=== PATIENT | female | born 1930 | race Caucasian/White ===

== ENCOUNTER 2016-09-25 11:05 | Emergency (ER) | payer MEDICARE, BC ==
[~2016-09-25] VITALS: Ht 157.5 cm; Wt 57.4 kg
[~2016-09-25 11:05] MED LIST: ALPR0.5T PO; ASPI-664 PO; ATOR40TA68 PO; ESCI20TA38 PO; FOLI-49 PO; HYDR-902 PO; LEVO112T2 PO; LEVO500T72 PO; METF850T PO; METO50TA16 PO; OMEG100011 PO; OMEP20CA16 PO; PIOG15TA4 PO; SENN-53 PO
[2016-09-25 11:08] VITALS: Ht 157.5 cm; Wt 57.4 kg
[2016-09-25 11:36] LABS: ADD SCAN DIFF NO
[2016-09-25 11:39] LABS: BASOPHILS % 0.3 % (0.0-2.0); EOSINOPHILS # 0.2 10^3/ul (0.0-0.5); EOSINOPHILS % 2.7 % (0.0-7.0); HEMATOCRIT 37.4 % (37.0-47.0); HEMOGLOBIN 11.9 g/dl (12.0-16.0); LYMPHOCYTES # 2.3 10^3/ul (0.8-2.9); LYMPHOCYTES % 30.1 % (15.0-51.0); MEAN CORPUSCULAR HEMOGLOBIN 30.3 pg (29.0-33.0); MEAN CORPUSCULAR HGB CONC 31.8 g/dl (32.0-37.0); MEAN CORPUSCULAR VOLUME 95.2 fl (82.0-101.0); MEAN PLATELET VOLUME 9.3 fl (7.4-10.4); MONOCYTE # 0.5 10^3/ul (0.3-0.9); MONOCYTES % 7.1 % (0.0-11.0); NEUTROPHIL # 4.5 10^3/ul (1.6-7.5); NEUTROPHILS % 59.7 % (39.0-77.0); PLATELET COUNT 316 10^3/UL (140-415); RED BLOOD COUNT 3.93 10^6/ul (4.20-5.40); WHITE BLOOD COUNT 7.5 10^3/ul (4.8-10.8)
[2016-09-25 11:47] LABS: ALBUMIN 4.1 g/dl (3.3-4.9); CHLORIDE 99 mmol/L (97-110); INR 0.91; PROTIME 12.3 Sec (12.2-14.2); SODIUM 140 mmol/L (135-144)
[2016-09-25 11:48] LABS: PARTIAL THROMBOPLASTIN TIME 28.1 Sec (25.0-35.0); POTASSIUM 4.9 mmol/L (3.5-5.1)
[2016-09-25 11:50] LABS: ALANINE AMINOTRANSFERASE 15 IU/L (13-69); ALBUMIN/GLOBULIN RATIO 1.07; ALKALINE PHOSPHATASE 73 IU/L (42-121); ANION GAP 18 (8-16); ASPARTATE AMINO TRANSFERASE 20 IU/L (15-46); BILIRUBIN,INDIRECT 0.1 mg/dl (0-1.1); BILIRUBIN,TOTAL 0.1 mg/dl (0.2-1.3); BLOOD UREA NITROGEN 20 mg/dl (7-20); CARBON DIOXIDE 28 mmol/L (21-31); CREATININE 0.71 mg/dl (0.44-1.00); GLUCOSE 174 mg/dl (70-220); TOTAL PROTEIN 7.9 g/dl (6.1-8.1)
[2016-09-25 11:51] LABS: CALCIUM 9.8 mg/dl (8.4-10.2)
--- NOTE | 2016-09-25 11:52 | RADRPT ---
PROCEDURE: XR Chest. CLINICAL INDICATION: Chest pain TECHNIQUE: Chest AP portable COMPARISON: 05/07/2016 FINDINGS: The mediastinal structures are unremarkable. There is calcification of the thoracic aorta (consiste nt with atherosclerosis). The heart is normal in size and configuration. The pulmonary vascularity is normal. There is mild bibasilar subsegmental atelectasis. No consolidation is identified. The pleural spaces are unremarkable. There is diffuse osteopenia. No fracture is identified. IMPRESSION: Calcification of the thoracic aorta (consistent with atherosclerosis). Mild bibasilar subsegmental atelectasis RPTAT: HGDB .Abraham De Oliveira MD, MD Date Time Electronically viewed and signed by .Abraham De Oliveira MD, on 09/25/2016 11:51 .B/
[2016-09-25 11:55] LABS: ACETAMINOPHEN < 10.0 ug/ml (10.0-30.0)
[2016-09-25 12:04] LABS: TROPONIN-I < 0.012 ng/ml (0.00-0.12)
[2016-09-25] MEDS ORDERED: GABA100C14 PO (12:47)
[2016-09-25] MEDS ORDERED: IODIXANOL LOCM 50 ML BTL ONE (13:16)
[2016-09-25] MEDS ORDERED: IODIXANOL LOCM 100 ML BTL ONE (13:16)
[2016-09-25] MEDS ORDERED: SOD CHLORIDE 0.9% 100 ML ONE (13:16)
--- NOTE | 2016-09-25 14:04 | RADRPT ---
PROCEDURE: CTA Chest CLINICAL INDICATION: Chest pain TECHNIQUE: CTA of the chest was performed following the uncomplicated IV administration of 115 cc of Visipaque 320. Coronal and sagittal images were reconstructed from the axial data set. 3-D volu metric rendered post processing was performed as well. One or more of the following dose reduction techniques were used: automated exposure control, adjustment of the mA and/or kV according to patien t size, use of iterative reconstruction technique. CTDI = 10.94 mGy. DLP = 413.35 mGy-cm. COMPARISON: Chest x-ray, 09/25/2016 FINDINGS: No filling defect is present to suggest pulmonary embolism. There is no evidence for pulmonary [place] rial hypertension. There are small to mild bilateral pleural effusions, larger on the right, with associated bibasilar atelectasis. No acute infiltrate, pulmonary edema or pneumothorax is identified. The central trach eobronchial tree is clear. No pulmonary nodule or mass is identified. The heart size is normal without pericardial effusion. Coronary arterial and aortic atherosclerotic calcifications are present. There is no thoracic aortic aneurysm or dissection. No mediastinal, h ilar, axillary or supraclavicular lymphadenopathy is identified. Visualized portions of the upper abdomen demonstrate no acute abnormality. The osseous structures a re remarkable for diffuse degenerative spondylosis of the spine. Old, healed right-sided rib fractu res are noted. There is chronic mild compression deformity of T12. No osteolytic or osteoblastic le robyn is seen. IMPRESSION: 1. No pulmonary embolism is identified. 2. There are small to mild bilateral pleural effusions, with associated bibasilar atelectasis, grea ter on the right. 3. Coronary arterial and aortic atherosclerotic calcifications are present. 4. No mass, lymphadenopathy, or focal acute infiltrate is seen. RPTAT: PP .Rob Barnes MD, Date Time Electronically viewed and signed by .Rob Barnes MD, MD on 09/25/2016 14:03 .R/
--- NOTE | 2016-09-25 14:48 | ERD ---
ER Documentation Chief Complaint Date/Time DATE: 09/25/16 TIME: 14:44 Chief Complaint SOB X 3 DAYS, SLEEPY,TIRED HPI This is an 86-year-old female who presents to the emergency room for evaluation of generalized weakness, mild shortness of breath for the past 3 days. History is obtained from patient and patient's daughter was at bedside. According to the patient she has been feeling sleepy and tired. According to the patient's daughter the patient takes proximally 6 [place] today for chronic pain. There was a concern because the patient has had multiple falls at home. No pulse today, no head injury, no loss of consciousness and previous falls. The patient was brought to the emergency room for evaluation of all of her complaints. She denies any chest pain or palpitations or shortness of breath at this time ROS All systems reviewed and are negative except as per history of present illness. Medications Home Meds Active Scripts Levothyroxine Sodium* (Synthroid*) 112 Mcg Tablet, 125 MCG PO AC BREAKFAST for 30 Days, #30 TAB Prov:YOANA HARTLEY MD 05/11/16 Reported Medications Gabapentin* (Gabapentin*) 100 Mg Capsule, 100 MG PO TID, #90 CAP 09/25/16 Sennosides* (Senna Lax*) 8.6 Mg Tablet, 2 TAB PO DAILY, TAB 05/07/16 Omeprazole* (Omeprazole*) 20 Mg Capsule.dr, 20 MG PO DAILY, #30 CAP 05/07/16 Hydrocodone/Acetaminophen ([place] 10-325 Tablet) 1 Each Tablet, 2 EACH PO TID, TAB 05/07/16 Folic Acid* (Folic Acid*) 1 Mg Tablet, 1 MG PO DAILY, TAB 05/07/16 Escitalopram Oxalate* (Escitalopram Oxalate*) 20 Mg Tablet, 20 MG PO DAILY, #30 TAB 05/07/16 Metformin Hcl* (Metformin Hcl*) 850 Mg Tablet, 850 MG PO WITH BREAKFAST, #30 TAB 05/07/16 Alprazolam* (Xanax*) 0.5 Mg Tab, 0.5 MG PO QHS, TAB 06/16/14 [place]-3 Fatty Acids/Fish Oil* (Fish Oil *) 1,000 Mg Capsule, 2000 MG PO DAILY, CAP 06/16/14 Aspirin* (Aspirin* (EC)) 81 Mg Tablet.dr, 162 MG PO DAILY, EA 06/16/14 Metoprolol Succinate* (Toprol XL*) 50 Mg Tab.er.24h, 50 MG PO DAILY, TAB 06/16/14 Atorvastatin* (Atorvastatin*) 40 Mg Tablet, 40 MG PO HS, TAB 06/16/14 Pioglitazone Hcl* (Actos*) 15 Mg Tablet, 15 MG PO DAILY, TAB 06/16/14 Discontinued Scripts Levofloxacin* (Levaquin*) 500 Mg Tablet, 500 MG PO DAILY@06 for 5 Days, #5 TAB Prov:YOANA HARTLEY MD 05/11/16 Allergies Allergies: Coded Allergies: No Known Drug Allergy (Verified Allergy, Unknown, 09/25/16) PMhx/Soc History of Surgery: Yes (PCI placement, cervical/lumbar laminectomy) Anesthesia Reaction: No Hx Neurological Disorder: No Hx Respiratory Disorders: No (C) Hx Cardiac Disorders: Yes (CAD) Hx Psychiatric Problems: No Hx Miscellaneous Medical Probl: Yes (HTN, DM, hypothyroidism, depression, CAD) Hx Alcohol Use: Yes Hx Substance Use: No Hx Tobacco Use: No Physical Exam Vitals Vital Signs Date Time Temp Pulse Resp B/P Pulse Ox O2 Delivery O2 Flow Rate FiO2 09/25/16 11:30 Nasal Cannula 2 09/25/16 11:08 98.1 116 18 134/66 92 Physical Exam INITIAL VITAL SIGNS: Reviewed by me GENERAL: The patient is well developed and appropriate for usual state of health in no apparent distress HEENT: Pupils equal, round, and reactive to light. EOMI. There is no scleral icterus. NECK: C-spine is soft and supple, there is no meningismus. There is no cervical lymphadenopathy. LUNGS: Clear to auscultation bilaterally. There are no rales, wheezes or rhonchi. HEART: Regular rate and rhythm, no murmurs, clicks, rubs or gallops. ABDOMEN: Soft, non-tender, non-distended. There are bowel sounds in all four quadrants. No rebound or guarding. EXTREMITIES: There is no peripheral cyanosis or edema. No focal swelling or erythema. NEUROLOGICAL: The patient moves all four extremities with 5/5 strength. Cranial nerves II - XII are intact. Normal gait. Alert and oriented SKIN: There is no apparent rash or petechiae. HEME/LYMPHATIC: There is no evidence of excessive bruising or lymphedema. PSYCHIATRIC: The patient does appear to be mildly anxious Result Diagram: 09/25/16 1129 09/25/16 1129 Results 24 hrs Laboratory Tests Test 09/25/16 11:29 White Blood Count 7.510^3/ul Red Blood Count 3.9310^6/ul Hemoglobin 11.9g/dl Hematocrit 37.4% Mean Corpuscular Volume 95.2fl Mean Corpuscular Hemoglobin 30.3pg Mean Corpuscular Hemoglobin Concent 31.8g/dl Red Cell Distribution Width 13.0% Platelet Count 72616^3/UL Mean Platelet Volume 9.3fl Neutrophils % 59.7% Lymphocytes % 30.1% Monocytes % 7.1% Eosinophils % 2.7% Basophils % 0.3% Nucleated Red Blood Cells % 0.0/100WBC Neutrophils # 4.510^3/ul Lymphocytes # 2.310^3/ul Monocytes # 0.510^3/ul Eosinophils # 0.210^3/ul Basophils # 0.010^3/ul Nucleated Red Blood Cells # 0.010^3/ul Prothrombin Time 12.3Sec Prothrombin Time Ratio 1.0 INR International Normalized Ratio 0.91 Activated Partial Thromboplast Time 28.1Sec Sodium Level 140mmol/L Potassium Level 4.9mmol/L Chloride Level 99mmol/L Carbon Dioxide Level 28mmol/L Anion Gap 18 Blood Urea Nitrogen 20mg/dl Creatinine 0.71mg/dl Glucose Level 174mg/dl Calcium Level 9.8mg/dl Total Bilirubin 0.1mg/dl Direct Bilirubin 0.00mg/dl Indirect Bilirubin 0.1mg/dl Aspartate Amino Transf (AST/SGOT) 20IU/L Alanine Aminotransferase (ALT/SGPT) 15IU/L Alkaline Phosphatase 73IU/L Troponin I < 0.012ng/ml Total Protein 7.9g/dl Albumin 4.1g/dl Globulin 3.80g/dl Albumin/Globulin Ratio 1.07 Acetaminophen Level < 10.0ug/ml Current Medications Medications (Trade) Dose Ordered Sig/Alice Route PRN Reason Start Time Stop Time Status Last Admin Dose Admin IV Flush 10 ml 10 ml STK-MED ONCE .ROUTE 09/25/16 13:16 09/25/16 13:17 DC 09/25/16 13:43 Sodium Chloride (NS) 100 ml @ ud STK-MED ONCE .ROUTE 09/25/16 13:16 4 13:17 DC 09/25/16 13:43 Iodixanol (Visipaque Locm) 100 ml STK-MED ONCE .ROUTE 09/25/16 13:16 09/25/16 13:17 DC 09/25/16 13:44 Iodixanol (Visipaque Locm) 50 ml STK-MED ONCE .ROUTE 09/25/16 13:16 09/25/16 13:17 DC 09/25/16 13:45 Procedures/MDM EKG: Rate/Rhythm: [Normal Sinus Rhythm] QRS, ST, T-waves: Nonspecific T-wave abnormality Impression: [No evidence of ischemia or arrhythmia] Chest X-ray 1V Interpreted by me: Soft Tissue: No acute abnormalities Bones: No acute abnormalities Mediastinum/Cardiac Silhouette/Lungs: [No acute abnormalities] CT angiography chest: 1. No pulmonary embolism is identified. 2. There are small to mild bilateral pleural effusions, with associated bibasilar atelectasis, greater on the right. 3. Coronary arterial and aortic atherosclerotic calcifications are present. 4. No mass, lymphadenopathy, or focal acute infiltrate is seen. This 86-year-old female presents to the emergency room for evaluation of multiple complaints including feeling tired, and cold when she wakes up in the morning. This patient's had multiple falls in the past. When she was in triage she was mildly tachycardic however when I evaluated her she was not tachycardic, no respiratory distress, not hypoxic. The patient has not been ambulating as much secondary to multiple falls at home. Given the patient's decreased activity and tachycardia in triage I did obtain a CT angiography of the chest to rule out pulmonary embolism. This patient has a negative for scan for pulmonary embolism. Troponin is normal, EKG is nonischemic, chest x-ray is clear. She is hemodynamically stable in the emergency room and in no acute distress. I discussed the patient's lab findings in the imaging findings with the patient and her daughter. I have let them know that she has no life- threatening emergencies at this time, and that she will likely need a physical therapy for outpatient evaluation. Both verbalized understanding and are okay with her disposition and plan of care at this time. I advised to return immediately to the ER if any of her symptoms worsen and they both verbalized understanding. Patient's daughter does state that she has the capacity to take care of the patient at home and will keep an eye on her and only allow her to ambulate with help. Departure Diagnosis: Primary Impression: Multiple complaints Additional Impressions: Generalized weakness Multiple falls Condition: Stable PAULA EDWARDS DO Sep 25, 2016 14:48
[2016-09-25 15:00] VITALS: BP 105/55; PULSE 78; RESP 18
== END 2016-09-25 15:00 | disposition home or self-care (01) ==
LOC: E/R 11:05
DX: R06.02 Shortness of breath (principal); R53.1 Weakness; I25.10 Atherosclerotic heart disease of native coronary artery without angina pectoris; I10 Essential (primary) hypertension; E11.9 Type 2 diabetes mellitus without complications; E03.9 Hypothyroidism, unspecified; W19.XXXA Unspecified fall, initial encounter; Z79.84 Long term (current) use of oral hypoglycemic drugs; Z79.82 Long term (current) use of aspirin
CPT/HCPCS: 36415; 71010; 71275; 80053; 80306; 84484; 85025; 85610; 85730; 93005; 99285; Q9967

== ENCOUNTER 2017-02-28 13:42 | Inpatient (IN) | payer MEDICARE, BC ==
[~2017-02-28] VITALS: Wt 72.7 kg
[~2017-02-28 13:42] MED LIST changes: +GABA100C14 PO; -LEVO500T72 PO; +METO-319 PO; -METO50TA16 PO
--- NOTE | 2017-02-28 13:56 | ERA ---
ER Documentation Chief Complaint Date/Time DATE: 02/28/17 TIME: 13:54 Chief Complaint sob and chest pressure, recently hospitalized for chf HPI The patient is a 86-year-old female, presenting with acute chest pain acute shortness of breath began about 4 AM today. The chest pain was described as pressure substernal, she has similar symptoms previously. Her chest pain is nonradiating, the shortness of breath is better if she sits up she was discharged from [facility] recently for CHF, MT and UTI. He denies abdominal pain, vomiting, dysuria, diarrhea. She does not smoke nor drink. She is taking Amoxil for UTI Past medical history: History of CHF, CAD hypertension, diabetes mellitus, hypothyroidism, depression, dyslipidemia, urinary incontinence, hard of hearing Past Surgical history: Cervical and lumbar laminectomy, stent PCI ROS All systems reviewed and are negative except as per history of present illness. Medications Home Meds Reported Medications Levothyroxine Sodium* (Levothyroxine Sodium*) 100 Mcg Tablet, 100 MCG PO BEFORE BREAKFAST, #30 TAB 02/28/17 Gabapentin* (Gabapentin*) 100 Mg Capsule, 100 MG PO TID, #90 CAP 09/25/16 Sennosides* (Senna Lax*) 8.6 Mg Tablet, 2 TAB PO DAILY, TAB 05/07/16 Omeprazole* (Omeprazole*) 20 Mg Capsule.dr, 20 MG PO DAILY, #30 CAP 05/07/16 Hydrocodone/Acetaminophen ([place] 10-325 Tablet) 1 Each Tablet, 2 EACH PO TID, TAB 05/07/16 Folic Acid* (Folic Acid*) 1 Mg Tablet, 1 MG PO DAILY, TAB 05/07/16 Metformin Hcl* (Metformin Hcl*) 850 Mg Tablet, 850 MG PO WITH BREAKFAST, #30 TAB 05/07/16 Alprazolam* (Xanax*) 0.5 Mg Tab, 0.5 MG PO QHS, TAB 06/16/14 Carbon-3 Fatty Acids/Fish Oil* (Fish Oil *) 1,000 Mg Capsule, 2000 MG PO DAILY, CAP 06/16/14 Aspirin* (Aspirin* (EC)) 81 Mg Tablet.dr, 162 MG PO DAILY, EA 06/16/14 Metoprolol Succinate* (Toprol XL*) 50 Mg Tab.er.24h, 50 MG PO DAILY, TAB 06/16/14 Atorvastatin* (Atorvastatin*) 40 Mg Tablet, 40 MG PO HS, TAB 06/16/14 Pioglitazone Hcl* (Actos*) 15 Mg Tablet, 15 MG PO DAILY, TAB 06/16/14 Discontinued Reported Medications Escitalopram Oxalate* (Escitalopram Oxalate*) 20 Mg Tablet, 20 MG PO DAILY, #30 TAB 05/07/16 Discontinued Scripts Levothyroxine Sodium* (Synthroid*) 112 Mcg Tablet, 125 MCG PO AC BREAKFAST for 30 Days, #30 TAB Prov:YOANA HARTLEY MD 05/11/16 Allergies Allergies: Coded Allergies: No Known Drug Allergy (Verified Allergy, Unknown, 09/25/16) PMhx/Soc History of Surgery: Yes (PCI placement, cervical/lumbar laminectomy) Anesthesia Reaction: No Hx Neurological Disorder: No Hx Respiratory Disorders: No (C) Hx Cardiac Disorders: Yes (CAD) Hx Psychiatric Problems: No Hx Miscellaneous Medical Probl: Yes (HTN, DM, hypothyroidism, depression, CAD) Hx Alcohol Use: Yes Hx Substance Use: No Hx Tobacco Use: No Physical Exam Vitals Vital Signs Date Time Temp Pulse Resp B/P Pulse Ox O2 Delivery O2 Flow Rate FiO2 02/28/17 17:03 68 18 118/51 98 Nasal Cannula 2.0 02/28/17 15:26 64 17 136/60 100 Room Air 02/28/17 15:07 65 17 134/72 94 Room Air 02/28/17 13:43 98.2 109 20 126/63 95 Physical Exam Const: No acute distress. Head: Atraumatic. Eyes: Normal Conjunctiva. ENT: Normal External Ears, Nose and Mouth. Neck: Full range of motion. No meningismus. Resp: Bibasilar crackle Cardio: Regular rate and rhythm. Abd: Soft, non distended, normal bowel sounds, non tender. Skin: No petechiae or rashes. Back: No midline or flank tenderness. Ext: No cyanosis, or edema. Neur: Awake and alert. No focal deficit Psych: Normal Mood and Affect. Result Diagram: 02/28/17 1430 02/28/17 1430 Results 24 hrs Laboratory Tests Test 02/28/17 14:30 White Blood Count 6.210^3/ul Red Blood Count 3.9010^6/ul Hemoglobin 11.0g/dl Hematocrit 34.8% Mean Corpuscular Volume 89.2fl Mean Corpuscular Hemoglobin 28.2pg Mean Corpuscular Hemoglobin Concent 31.6g/dl Red Cell Distribution Width 12.7% Platelet Count 65420^3/UL Mean Platelet Volume 8.6fl Neutrophils % 58.3% Lymphocytes % 29.9% Monocytes % 7.7% Eosinophils % 3.4% Basophils % 0.5% Nucleated Red Blood Cells % 0.0/100WBC Neutrophils # 3.610^3/ul Lymphocytes # 1.910^3/ul Monocytes # 0.510^3/ul Eosinophils # 0.210^3/ul Basophils # 0.010^3/ul Nucleated Red Blood Cells # 0.010^3/ul Prothrombin Time 12.7Sec Prothrombin Time Ratio 1.0 INR International Normalized Ratio 0.95 Activated Partial Thromboplast Time 32.8Sec Sodium Level 131mmol/L Potassium Level 4.6mmol/L Chloride Level 94mmol/L Carbon Dioxide Level 30mmol/L Anion Gap 12 Blood Urea Nitrogen 14mg/dl Creatinine 0.68mg/dl Glucose Level 165mg/dl Calcium Level 9.2mg/dl Total Bilirubin 0.2mg/dl Direct Bilirubin 0.00mg/dl Indirect Bilirubin 0.2mg/dl Aspartate Amino Transf (AST/SGOT) 23IU/L Alanine Aminotransferase (ALT/SGPT) 21IU/L Alkaline Phosphatase 92IU/L Troponin I < 0.012ng/ml B-Type Natriuretic Peptide 1000PG/ML Total Protein 8.0g/dl Albumin 3.8g/dl Globulin 4.20g/dl Albumin/Globulin Ratio 0.90 Current Medications Medications (Trade) Dose Ordered Sig/Alice Route PRN Reason Start Time Stop Time Status Last Admin Dose Admin Aspirin (Aspirin) 162 mg ONCE ONCE PO 02/28/17 16:30 02/28/17 16:31 DC 02/28/17 16:48 Furosemide (Lasix) 20 mg ONCE ONCE IV 02/28/17 16:30 02/28/17 16:31 DC 02/28/17 16:48 IV Flush (NS 3 ml) 3 ml PER PROTOCOL IV 02/28/17 19:00 Nitroglycerin (Nitroglycerin (Sl Tab) 0.4 Mg) 1 tab Q5M PRN SL CHEST PAIN 02/28/17 19:00 Acetaminophen (Tylenol Tab) 650 mg Q6H PRN PO PAIN LEVEL 1-3 OR FEVER 02/28/17 19:00 Enoxaparin Sodium (Lovenox) 40 mg DAILY SC 03/01/17 09:00 Aspirin (Halfprin) 162 mg DAILY PO 03/01/17 09:00 UNV Atorvastatin Calcium (Lipitor) 40 mg HS PO 02/28/17 21:00 UNV Folic Acid (Folic Acid) 1 mg DAILY PO 03/01/17 09:00 UNV Gabapentin (Neurontin) 100 mg TID PO 02/28/17 21:00 UNV Levothyroxine Sodium (Synthroid) 100 mcg BEFORE BREAKFAST PO 03/01/17 07:00 UNV Metformin HCl (Glucophage) 850 mg WITH BREAKFAST PO 03/01/17 08:00 UNV Metoprolol Succinate (Toprol Xl) 50 mg DAILY PO 03/01/17 09:00 UNV Fish Oil (Fish Oil) 2,000 mg DAILY PO 03/01/17 09:00 UNV Pioglitazone HCl (Actos) 15 mg DAILY PO 03/01/17 09:00 UNV Senna (Senokot) 2 tab DAILY PO 03/01/17 09:00 UNV Miscellaneous Information 20 mg DAILY PO 03/01/17 09:00 UNV Acetaminophen/ Hydrocodone Bitart ([place] (10/325)) 1 tab Q4 PRN PO PAIN LEVEL 7-10 02/28/17 19:00 UNV Alprazolam (Xanax) 0.5 mg Q6 PRN PO ANXIETY 02/28/17 19:00 UNV Levothyroxine Sodium (Synthroid) 88 mcg ONCE ONCE PO 02/28/17 19:00 02/28/17 19:01 UNV Miscellaneous Information (* Miscellaneous Pharmacy Order) Discontinue current oral sulfonylur... ONCE ONCE XX 02/28/17 19:00 02/28/17 19:01 UNV Diagnostic Test (Pha) (Accu-Chek) 1 ea 02 XX 03/01/17 02:00 UNV Miscellaneous Information (* Miscellaneous Pharmacy Order) HYPOGLYCEMIA PROTOCOL w... ONCE ONCE XX 02/28/17 19:00 02/28/17 19:01 UNV Insulin Aspart (Novolog Insulin Pen) NOVOLOG *MILD* ALGORITHM WITH MEALS BEDTIME SC 02/28/17 21:00 UNV Miscellaneous Information (* Miscellaneous Pharmacy Order) Discontinue all previ... ONCE ONCE XX 02/28/17 19:00 02/28/17 19:01 UNV Procedures/[place] [address] Radiology Main Line: [phone] DIAGNOSTIC IMAGING REPORT Patient: DAMARI FISHER : 1930 Age: 86 Sex: F MR #: [id number] DOS: 02/28/17 1402 Ordering MD: ARMIN AMAYA MD Location: E/R Room/Bed: PROCEDURE: XR Chest 1 View. CLINICAL INDICATION: Shortness of breath. TECHNIQUE: AP view of the chest was obtained. COMPARISON: September 25, 2016 FINDINGS: The heart size is within normal limits. Calcified atherosclerosis is noted in the aorta. Elevated right hemidiaphragm is identified. Diffuse mild interstitial prominence in both lungs appears chronic. Scattered atelectasis is noted in both lungs. No consolidations are identified. No pneumothorax is seen. Osseous structures are intact. IMPRESSION: Calcified atherosclerosis in the aorta. Chronic mild interstitial prominence in both lungs. Scattered atelectasis in both lungs. Chronically elevated right hemidiaphragm. RPTAT: AA .Uriel Chakraborty MD, Date Time Electronically viewed and signed by .Uriel Chakraborty MD, MD on 02/28/2017 15:04 .P/ CC: [facility] AMAYA MD EKG: Read by emergency physician Rate/Rhythm: Normal Sinus Rhythm 83 beats/min QRS, ST, T-waves: No ST elevation, no T inversion, RBBB, inferior Qs Impression: Abnormal EKG MEDICAL MAKING DECISION: The patient is a 86-year-old female, presenting with acute chest pain and acute CHF. She was treated with aspirin 160 mg p.o. and Lasix 20 mg IV with good response. The differential diagnoses for acute chest pain considered include but are not limited to acute coronary syndrome, acute myocardial infarction, pericarditis, pulmonary embolism, aortic dissection, pneumonia, pleural effusion, pneumothorax , GERD, chest wall pain. The differential diagnoses for acute dyspnea considered include but are not limited to asthma, COPD, pneumonia, pulmonary embolus, pleural effusion, congestive heart failure. Departure Diagnosis: Primary Impression: CHF (congestive heart failure) Additional Impressions: Chest pain Anemia Condition: Stable Comments I discussed the findings with the patient. I discussed the patient with her physician Dr. Correia at 4:15 pm who was made aware of the lab, the treatment, the patient condition. The patient is admitted to [facility] Rm MD Feb 28, 2017 13:56
[2017-02-28 14:49] LABS: BASOPHILS % 0.5 % (0.0-2.0); EOSINOPHILS # 0.2 10^3/ul (0.0-0.5); EOSINOPHILS % 3.4 % (0.0-7.0); HEMATOCRIT 34.8 % (37.0-47.0); LYMPHOCYTES # 1.9 10^3/ul (0.8-2.9); LYMPHOCYTES % 29.9 % (15.0-51.0); MEAN CORPUSCULAR HEMOGLOBIN 28.2 pg (29.0-33.0); MEAN CORPUSCULAR HGB CONC 31.6 g/dl (32.0-37.0); MEAN CORPUSCULAR VOLUME 89.2 fl (82.0-101.0); MEAN PLATELET VOLUME 8.6 fl (7.4-10.4); MONOCYTE # 0.5 10^3/ul (0.3-0.9); MONOCYTES % 7.7 % (0.0-11.0); NEUTROPHIL # 3.6 10^3/ul (1.6-7.5); NEUTROPHILS % 58.3 % (39.0-77.0); PLATELET COUNT 362 10^3/UL (140-415); RED CELL DISTRIBUTION WIDTH 12.7 % (11.5-14.5); WHITE BLOOD COUNT 6.2 10^3/ul (4.8-10.8)
[2017-02-28] MEDS ORDERED: LEVO100T87 PO (14:49)
[2017-02-28 15:04] LABS: ALANINE AMINOTRANSFERASE 21 IU/L (13-69); ALBUMIN 3.8 g/dl (3.3-4.9); ALKALINE PHOSPHATASE 92 IU/L (42-121); ANION GAP 12 (8-16); ASPARTATE AMINO TRANSFERASE 23 IU/L (15-46); BILIRUBIN,INDIRECT 0.2 mg/dl (0-1.1); BILIRUBIN,TOTAL 0.2 mg/dl (0.2-1.3); BLOOD UREA NITROGEN 14 mg/dl (7-20); CALCIUM 9.2 mg/dl (8.4-10.2); CARBON DIOXIDE 30 mmol/L (21-31); CHLORIDE 94 mmol/L (97-110); CREATININE 0.68 mg/dl (0.44-1.00); GLUCOSE 165 mg/dl (70-220); POTASSIUM 4.6 mmol/L (3.5-5.1); SODIUM 131 mmol/L (135-144)
--- NOTE | 2017-02-28 15:04 | RADRPT ---
PROCEDURE: XR Chest 1 View. CLINICAL INDICATION: Shortness of breath. TECHNIQUE: AP view of the chest was obtained. COMPARISON: September 25, 2016 FINDINGS: The heart size is within normal limits. Calcified atherosclerosis is noted in the aorta. Elevated r ight hemidiaphragm is identified. Diffuse mild interstitial prominence in both lungs appears chronic . Scattered atelectasis is noted in both lungs. No consolidations are identified. No pneumothorax i s seen. Osseous structures are intact. IMPRESSION: Calcified atherosclerosis in the aorta. Chronic mild interstitial prominence in both lungs. Scattered atelectasis in both lungs. Chronically elevated right hemidiaphragm. RPTAT: AA .Uriel Chakraborty MD, Date Time Electronically viewed and signed by .Uriel Chakraborty MD, on 02/28/2017 15:04 .P/
[2017-02-28 15:09] LABS: INR 0.95; PROTIME 12.7 Sec (12.2-14.2)
[2017-02-28 15:10] LABS: PARTIAL THROMBOPLASTIN TIME 32.8 Sec (25.0-35.0)
[2017-02-28 15:15] LABS: B-TYPE NATRIURETIC PEPTIDE 1000 PG/ML (0-450)
[2017-02-28 15:16] LABS: TROPONIN-I < 0.012 ng/ml (0.00-0.12)
[2017-02-28] MEDS ORDERED: FUROSEMIDE 20 MG INJ IV ONE (16:30)
[2017-02-28] MEDS ORDERED: ASPIRIN 81 MG TAB PO ONE (16:30)
--- NOTE | 2017-02-28 16:55 | CONS ---
Date/Time of Note Date/Time of Note DATE: 02/28/17 TIME: 16:52 Assessment/Plan Assessment/Plan Chief Complaint/Hosp Course Impression: # chest pain- pt with h/o of CAD, family states ? recent NH at [facility] though no records available. trop neg x 1. ekg without acute changes. - serial EKG, trop - cont asa/statin - obtain 2d echo in am - f/u old records - cont bb/bp control - prn nitrate # acute on chronic diastolic hf- pt with recent admission for this as well, ? if drop in ef there. will need to obtain records. repeat echo given sx. bnp elevated, mild chf on cxr on my review - lasix iv - watch i/o, low na diet - cont bb - consider acei if cr stable - bp control # recent UTI, per primary Problems: Consultation Date/Type/Reason Admit Date/Time Social History Smoking Status: Never smoker Exam/Review of Systems Vital Signs Vitals Vital Signs Date Time Temp Pulse Resp B/P Pulse Ox O2 Delivery O2 Flow Rate FiO2 02/28/17 15:26 64 17 136/60 100 Room Air 02/28/17 13:43 98.2 Results Result Diagram: 02/28/17 1430 02/28/17 1430 Results 24 hrs Laboratory Tests Test 02/28/17 14:30 White Blood Count 6.2 Red Blood Count 3.90 L Hemoglobin 11.0 L Hematocrit 34.8 L Mean Corpuscular Volume 89.2 Mean Corpuscular Hemoglobin 28.2 L Mean Corpuscular Hemoglobin Concent 31.6 L Red Cell Distribution Width 12.7 Platelet Count 362 Mean Platelet Volume 8.6 Neutrophils % 58.3 Lymphocytes % 29.9 Monocytes % 7.7 Eosinophils % 3.4 Basophils % 0.5 Nucleated Red Blood Cells % 0.0 Neutrophils # 3.6 Lymphocytes # 1.9 Monocytes # 0.5 Eosinophils # 0.2 Basophils # 0.0 Nucleated Red Blood Cells # 0.0 Prothrombin Time 12.7 Prothrombin Time Ratio 1.0 INR International Normalized Ratio 0.95 Activated Partial Thromboplast Time 32.8 Sodium Level 131 L Potassium Level 4.6 Chloride Level 94 L Carbon Dioxide Level 30 Anion Gap 12 Blood Urea Nitrogen 14 Creatinine 0.68 Glucose Level 165 Calcium Level 9.2 Total Bilirubin 0.2 Direct Bilirubin 0.00 Indirect Bilirubin 0.2 Aspartate Amino Transf (AST/SGOT) 23 Alanine Aminotransferase (ALT/SGPT) 21 Alkaline Phosphatase 92 Troponin I < 0.012 B-Type Natriuretic Peptide 1000 H Total Protein 8.0 Albumin 3.8 Globulin 4.20 H Albumin/Globulin Ratio 0.90 AYO LESTER Feb 28, 2017 16:54
[2017-02-28] MEDS ORDERED: LEVOTHYROXINE 88 MCG TAB PO ONE (19:00)
[2017-02-28] MEDS ORDERED: NACL 0.9% 3 ML SYG IV SCH (19:00)
[2017-02-28] MEDS ORDERED: NITROGLYCERIN (SL) 0.4 MG TAB SL PRN (19:00)
[2017-02-28] MEDS ORDERED: ACETAMINOPHEN 325 MG TAB PO PRN (19:00)
[2017-02-28 20:28] VITALS: PULSE 69
[2017-02-28 20:52] VITALS: BP 176/80; RESP 17
[2017-02-28] MEDS ORDERED: GLUCOSE GEL 15 GRAM TUBE PO PRN ×2 (21:00)
[2017-02-28] MEDS ORDERED: DEXTROSE 50% 50 ML SYRINGE IV PRN ×2 (21:00)
[2017-02-28] MEDS ORDERED: GLUCOSE GEL 15 GRAM TUBE BUCCAL PRN (21:00)
[2017-02-28] MEDS: INSULIN ASPART [NOVOLOG] 3 ML PEN SC SCH (21:00)
[2017-02-28] MEDS ORDERED: GLUCAGON 1 MG INJ IM PRN (21:00)
[2017-02-28] MEDS: ALPRAZOLAM 0.25 MG TAB PO PRN (21:35)
[2017-02-28] MEDS: ATORVASTATIN 40 MG TAB PO SCH (21:35)
[2017-02-28] MEDS: GABAPENTIN 100 MG CAP PO SCH (21:36)
--- NOTE | 2017-02-28 22:45 | HP ---
DATE OF ADMISSION: 02/28/2017 CHIEF COMPLAINT: Shortness of breath with chest pressure. HISTORY OF PRESENT ILLNESS: This 86-year-old female was in her usual state of health until this morning when she developed shortness of breath and substernal chest pressure. The patient was recently hospitalized at [facility]. During that admission, she was diagnosed with a urinary tract infection, congestive heart failure, acute myocardial infarction, type 2 NSTEMI. The patient was discharged and I actually saw her 2 days ago in my office. At that time, she did have some dyspnea on exertion; however, she is very sedentary and it was difficult to tell whether this was something new or old. The patient was given diuretics while at [facility], but was not sent home on diuretics. The patient on further questioning now says that she has had some orthopnea. She did have more dyspnea on exertion, and then this morning, the shortness of breath increased in severity. She has also had some intermittent chest pressure. The patient has a history of coronary artery disease and did undergo an angioplasty with stent placement in 2003. She is under the care of Dr. Sami Bergman, a local director of hotel. The patient is mostly sedentary because of severe disabling spinal disease and diffuse arthritis. She denies any fever or chills. PAST MEDICAL HISTORY: Significant for type 2 diabetes mellitus, osteoarthritis many years disease, multiple fractures, urinary tract infections, hypothyroidism, multiple falls, deafness, congestive heart failure, atherosclerotic heart disease, status post acute [place], age related osteoporosis, chronic pain syndrome, hypothyroidism, hyperlipidemia, anemia of chronic disease. SURGICAL HISTORY: Lumbar spine surgery for spinal stenosis. Angioplasty with stent placement. FAMILY HISTORY: Her father is . He was diagnosed with heart disease and stroke. Her mother of unknown causes. SOCIAL HISTORY: The patient does not smoke nor drink alcohol. CURRENT MEDICATIONS: Include the following, Synthroid 112 mcg a day, gabapentin 100 mg 3 times a day, senna laxative, omeprazole 20 mg a day, hydrocodone, acetaminophen 10/325, 2 to 3 times a day as needed for pain, folic acid 1 mg a day, escitalopram, metformin 850 mg once a day, Xanax 0.5 mg at bedtime for sleep, [place] 3 fish oil, aspirin 162 mg a day, metoprolol succinate 50 mg a day, Atorvastatin 40 mg a day, pioglitazone 15 mg a day. ALLERGIES: NO KNOWN DRUG ALLERGIES. PHYSICAL EXAMINATION: GENERAL: At this time reveals an elderly female, in no apparent distress. VITAL SIGNS: Temperature 98.2, pulse 68, respirations 18, blood pressure 118/51, O2 sat of 98 percent on 2 L nasal cannula. HEENT: Head normocephalic. Eyes, extraocular muscles intact. Nose and mouth are normal. NECK: Supple. No neck vein distention. LUNGS: Diminished breath sounds bilaterally with a few bibasilar rales. HEART: Regular rhythm. No murmurs, gallops, or rubs. ABDOMEN: Soft, nontender. No masses or megaly. EXTREMITIES: No peripheral edema. NEUROLOGIC: She is weak diffusely without any obvious focal neurologic deficits. Cranial nerves are intact 2 through 12. IMPRESSION: 1. This patient presents now with signs and symptoms consistent with congestive heart failure. She did have an episode of congestive heart failure while at [facility]. They diagnosed it as diastolic congestive heart failure. She also was told she had an acute myocardial infarction. Her troponin level now is normal. 2. Type 2 diabetes mellitus. 3. Debility due to diffuse osteoarthritis and spinal stenosis. 4. Osteoporosis. 5. Chronic pain syndrome with dependence on opioid analgesics. 6. History of recurrent urinary tract infections. PLAN: 1. Admit to telemetry. 2. Cardiology consultation. 3. Patient has received 1 dose of Lasix in the ER. Will continue with IV Lasix starting tomorrow morning. We will check another troponin. 4. Echocardiogram ordered by director of hotel. Dictated By: Lennox Kruse MD /elliot/ralfc /Document#: [id number]
[2017-02-28] MEDS: HYDROCODONE/APAP (10/325) TAB PO PRN (23:27)
[2017-03-01] VITALS (13 sets, daily range): BP systolic 94–119; BP diastolic 48–60; PULSE 66–76; RESP 17–20
[2017-03-01] MEDS: ACCU-CHEK XX SCH (02:00)
[2017-03-01] MEDS: ALPRAZOLAM 0.25 MG TAB PO PRN ×2 (04:18→21:15)
[2017-03-01] MEDS: PANTOPRAZOLE (EC) 40 MG TAB PO SCH (06:04)
[2017-03-01] MEDS: LEVOTHYROXINE 100 MCG TAB PO SCH (06:04)
[2017-03-01 07:18] LABS: BASOPHILS % 0.5 % (0.0-2.0); EOSINOPHILS # 0.5 10^3/ul (0.0-0.5); HEMOGLOBIN 9.3 g/dl (12.0-16.0); MEAN CORPUSCULAR HEMOGLOBIN 27.8 pg (29.0-33.0); MEAN CORPUSCULAR VOLUME 89.6 fl (82.0-101.0); MONOCYTE # 0.6 10^3/ul (0.3-0.9); NEUTROPHIL # 2.6 10^3/ul (1.6-7.5); NEUTROPHILS % 45.3 % (39.0-77.0); PLATELET COUNT 323 10^3/UL (140-415); RED BLOOD COUNT 3.35 10^6/ul (4.20-5.40); WHITE BLOOD COUNT 5.6 10^3/ul (4.8-10.8)
[2017-03-01] MEDS: HYDROCODONE/APAP (10/325) TAB PO PRN ×3 (07:18→23:44)
[2017-03-01] MEDS: metFORMIN 850 MG TAB PO SCH (07:19)
[2017-03-01] MEDS: INSULIN ASPART [NOVOLOG] 3 ML PEN SC SCH ×4 (07:19→21:00)
[2017-03-01 07:44] LABS: ALBUMIN 2.9 g/dl (3.3-4.9); ALBUMIN/GLOBULIN RATIO 0.87; BILIRUBIN,INDIRECT 0.2 mg/dl (0-1.1); BILIRUBIN,TOTAL 0.2 mg/dl (0.2-1.3); CALCIUM 9.2 mg/dl (8.4-10.2); CREATININE 0.79 mg/dl (0.44-1.00); POTASSIUM 4.5 mmol/L (3.5-5.1); TOTAL PROTEIN 6.2 g/dl (6.1-8.1)
[2017-03-01] MEDS: FISH OIL 1,000 MG CAP PO SCH (08:27)
[2017-03-01] MEDS: GABAPENTIN 100 MG CAP PO SCH ×3 (08:27→21:14)
[2017-03-01] MEDS: FUROSEMIDE 40 MG INJ IV SCH (08:27)
[2017-03-01] MEDS: FOLIC ACID 1 MG TAB PO SCH (08:27)
[2017-03-01] MEDS: ASPIRIN (EC) 81 MG TAB PO SCH (08:28)
[2017-03-01] MEDS: SENNA TAB PO SCH (08:28)
[2017-03-01] MEDS: METOPROLOL (XL) 50 MG TAB PO SCH (08:29)
[2017-03-01 08:32] LABS: MAGNESIUM 1.7 mg/dl (1.7-2.5); PHOSPHORUS 5.5 mg/dl (2.5-4.9)
[2017-03-01] MEDS: ENOXAPARIN 40 MG/0.4 ML SYG SC SCH (08:42)
[2017-03-01] MEDS ORDERED: NON-FORMULARY/PATIENT OWN MED (Omeprazole* 20 MG) PO SCH (09:00)
[2017-03-01] MEDS ORDERED: PIOGLITAZONE 15 MG TAB PO SCH (09:00)
--- NOTE | 2017-03-01 09:54 | PN ---
Date/Time of Note Date/Time of Note DATE: 03/01/17 TIME: 09:45 Assessment/Plan VTE Prophylaxis VTE Prophylaxis Intervention: LMWH Lines/Catheters IV Catheter Type (from Nrs): [place] Urinary Cath still in place: No Assessment/Plan Chief Complaint/Hosp Course 1. CHF , she is getting IV Lasix daily . 2. DM , controlled 3. Debility , due to diffuse arthritis and back pain . 4. Chronic pain syndrome , with opiod dependence 5. hyponatremia , will restrict fluids . Problems: Subjective 24 Hr Interval Summary Free Text/Dictation She has no new complaints . She does want her [place] 10/325 to be given 2 tabs po Q 8 hours for pain . she is not having SOB . Constitutional: improved, no complaints Cardiovascular: no complaints Gastrointestinal: no complaints Genitourinary: no complaints Neurologic: no complaints Exam/Review of Systems Vital Signs Vitals Vital Signs Date Time Temp Pulse Resp B/P Pulse Ox O2 Delivery O2 Flow Rate FiO2 03/01/17 08:28 75 03/01/17 07:47 98.0 17 113/57 97 02/28/17 22:43 Nasal Cannula 2.0 Intake and Output 02/28/17 02/28/17 03/01/17 15:00 23:00 07:00 Intake Total 600 ml Balance 600 ml Exam Constitutional: alert, frail, oriented Respiratory: crackles/rales, diminished breath sounds Cardiovascular: regular rate and rhythm Gastrointestinal: soft Musculoskeletal: nl extremities to inspection Results Result Diagram: 03/01/17 0651 03/01/17 0651 Results 24 hrs Laboratory Tests Test 02/28/17 14:30 02/28/17 21:34 02/28/17 23:18 03/01/17 02:00 White Blood Count 6.2 Red Blood Count 3.90 L Hemoglobin 11.0 L Hematocrit 34.8 L Mean Corpuscular Volume 89.2 Mean Corpuscular Hemoglobin 28.2 L Mean Corpuscular Hemoglobin Concent 31.6 L Red Cell Distribution Width 12.7 Platelet Count 362 Mean Platelet Volume 8.6 Neutrophils % 58.3 Lymphocytes % 29.9 Monocytes % 7.7 Eosinophils % 3.4 Basophils % 0.5 Nucleated Red Blood Cells % 0.0 Neutrophils # 3.6 Lymphocytes # 1.9 Monocytes # 0.5 Eosinophils # 0.2 Basophils # 0.0 Nucleated Red Blood Cells # 0.0 Prothrombin Time 12.7 Prothrombin Time Ratio 1.0 INR International Normalized Ratio 0.95 Activated Partial Thromboplast Time 32.8 Sodium Level 131 L Potassium Level 4.6 Chloride Level 94 L Carbon Dioxide Level 30 Anion Gap 12 Blood Urea Nitrogen 14 Creatinine 0.68 Glucose Level 165 Calcium Level 9.2 Total Bilirubin 0.2 Direct Bilirubin 0.00 Indirect Bilirubin 0.2 Aspartate Amino Transf (AST/SGOT) 23 Alanine Aminotransferase (ALT/SGPT) 21 Alkaline Phosphatase 92 Troponin I < 0.012 B-Type Natriuretic Peptide 1000 H Total Protein 8.0 Albumin 3.8 Globulin 4.20 H Albumin/Globulin Ratio 0.90 Bedside Glucose 183 143 140 Test 03/01/17 06:51 03/01/17 07:17 White Blood Count 5.6 Red Blood Count 3.35 L Hemoglobin 9.3 L Hematocrit 30.0 L Mean Corpuscular Volume 89.6 Mean Corpuscular Hemoglobin 27.8 L Mean Corpuscular Hemoglobin Concent 31.0 L Red Cell Distribution Width 13.0 Platelet Count 323 Mean Platelet Volume 9.0 Neutrophils % 45.3 Lymphocytes % 35.0 Monocytes % 11.0 Eosinophils % 8.0 H Basophils % 0.5 Nucleated Red Blood Cells % 0.0 Neutrophils # 2.6 Lymphocytes # 2.0 Monocytes # 0.6 Eosinophils # 0.5 Basophils # 0.0 Nucleated Red Blood Cells # 0.0 Sodium Level 132 L Potassium Level 4.5 Chloride Level 95 L Carbon Dioxide Level 33 H Anion Gap 9 Blood Urea Nitrogen 21 H Creatinine 0.79 Glucose Level 111 # Calcium Level 9.2 Phosphorus Level 5.5 H Magnesium Level 1.7 Total Bilirubin 0.2 Direct Bilirubin 0.00 Indirect Bilirubin 0.2 Aspartate Amino Transf (AST/SGOT) 20 Alanine Aminotransferase (ALT/SGPT) 18 Alkaline Phosphatase 67 Troponin I < 0.012 Total Protein 6.2 # Albumin 2.9 L Globulin 3.30 H Albumin/Globulin Ratio 0.87 Bedside Glucose 119 Medications Medications Current Medications Nitroglycerin (Nitroglycerin (Sl Tab) 0.4 Mg) 1 tab Q5M PRN SL CHEST PAIN; Start 02/28/17 at 19:00 Acetaminophen (Tylenol Tab) 650 mg Q6H PRN PO PAIN LEVEL 1-3 OR FEVER; Start at 19:00 Enoxaparin Sodium (Lovenox) 40 mg DAILY SC Last administered on 03/01/17 08:42 ; Admin Dose 40 MG; Start 03/01/17 at 09:00 Aspirin (Halfprin) 162 mg DAILY PO Last administered on 03/01/17 08:28; Admin Dose 162 MG; Start 03/01/17 at 09:00 Atorvastatin Calcium (Lipitor) 40 mg HS PO Last administered on 02/28/17 21:35 ; Admin Dose 40 MG; Start 02/28/17 at 21:00 Folic Acid (Folic Acid) 1 mg DAILY PO Last administered on 03/01/17 08:27; Admin Dose 1 MG; Start 03/01/17 at 09:00 Gabapentin (Neurontin) 100 mg TID PO Last administered on 03/01/17 08:27; Admin Dose 100 MG; Start 02/28/17 at 21:00 Metoprolol Succinate (Toprol Xl) 50 mg DAILY PO Last administered on 03/01/17 08:29; Admin Dose 50 MG; Start 03/01/17 at 09:00 Fish Oil (Fish Oil) 2,000 mg DAILY PO Last administered on 03/01/17 08:27; Admin Dose 2,000 MG; Start 03/01/17 at 09:00 Senna (Senokot) 2 tab DAILY PO Last administered on 03/01/17 08:28; Admin Dose 2 TAB; Start 03/01/17 at 09:00 Acetaminophen/ Hydrocodone Bitart ([place] (10/325)) 1 tab Q4 PRN PO PAIN LEVEL 7 -10 Last administered on 03/01/17 07:18; Admin Dose 1 TAB; Start 02/28/17 at 19 :00 Alprazolam (Xanax) 0.5 mg Q6 PRN PO ANXIETY Last administered on 03/01/17 04: 18; Admin Dose 0.5 MG; Start 02/28/17 at 19:00 Diagnostic Test (Pha) (Accu-Chek) 1 ea 02 XX ; Start 03/01/17 at 02:00 Furosemide (Lasix) 40 mg DAILY IV Last administered on 03/01/17 08:27; Admin Dose 40 MG; Start 03/01/17 at 09:00 Miscellaneous Information 1 ea NOTE XX ; Start 02/28/17 at 21:00 Glucose (Glutose) 15 gm Q15M PRN PO DECREASED GLUCOSE; Start 02/28/17 at 21:00 Glucose (Glutose) 22.5 gm Q15M PRN PO DECREASED GLUCOSE; Start 02/28/17 at 21: 00 Dextrose (D50w Syringe) 25 ml Q15M PRN IV DECREASED GLUCOSE; Start 02/28/17 at 21:00 Dextrose (D50w Syringe) 50 ml Q15M PRN IV DECREASED GLUCOSE; Start 02/28/17 at 21:00 Glucagon (Glucagen) 1 mg Q15M PRN IM DECREASED GLUCOSE; Start 02/28/17 at 21:00 Glucose (Glutose) 15 gm Q15M PRN BUCCAL DECREASED GLUCOSE; Start 02/28/17 at 21 :00 Pantoprazole (Protonix Tab) 40 mg DAILY@06 PO Last administered on 03/01/17t 06 :04; Admin Dose 40 MG; Start 03/01/17 at 06:00 LAZARO PARRY MD Mar 01, 2017 09:54
[2017-03-01 12:09] LABS: IRON 39 ug/dl (35-150)
[2017-03-01 12:19] LABS: TOTAL IRON BINDING CAPACITY 350 ug/dl (241-421)
[2017-03-01 12:41] LABS: THYROID STIMULATING HORMONE 3.12 MIU/L (0.465-4.680)
[2017-03-01 12:45] LABS: FERRITIN 21.1 ng/ml (11.1-264.0)
[2017-03-01] MEDS ORDERED: HYDROCODONE/APAP (10/325) TAB PO PRN (14:00)
[2017-03-01] MEDS: ATORVASTATIN 40 MG TAB PO SCH (21:14)
--- NOTE | 2017-03-01 21:18 | RADRPT ---
Echocardiogram Report Patient Name: DAMARI FISHER Gender: Female Date: 1930 Study Date: 01-Mar-2017 [employer] Rail Installer: Kenrick Hines LOLI Location: [id number] Ref. Physician: JUNAID LESTER Quality: Technically Difficult Study Procedures: Transthoracic echocardiogram with complete 2D, M-Mode, and doppler examination. Indications: Congestive Heart Failure. 2D/M Mode Doppler Measurement Value Normal Ranges Measurement Value Normal Ranges LVIDd 2D 4.0 3.5 - 5.6 cm AV Peak [place] 1.8 m/sec LVIDs 2D 2.6 2.1 - 4.1 cm AV Peak PG 12.7 mmHg LVPWd 2D 1.3 0.6 - 1.1 cm LVOT Peak [place] 0.8 m/sec IVSd 2D 1.3 0.6 - 1.1 cm LVOT Peak PG 2.7 mmHg AoR Diam 2D 2.3 2.0 - 3.7 cm MV E Peak [place] 1.0 m/sec EDV 2D 68.7 cm3 MV A Peak [place] 1.2 m/sec ESV 2D 17.3 cm3 MV E/A 0.8 LA Dimen 2D 2.9 2.3 - 4.0 cm MV Decel Time 276 msec MV Decel [place] 4 MV E/A 0.8 TR Peak Ler[place] 3.1 m/sec TR Peak PG 37.4 mmHg RVSP 40.0 mmHg Findings Left Ventricle: Normal left ventricular systolic function. Normal left ventricular cavity size. Moderate concentric left ventricular hypertrophy. Ejection fraction is visually estimated at 65 %. Tissue Doppler/Mitral Doppler indices are consistent with impaired relaxation (Stage I diastolic dysfunction). Right Ventricle: Normal right ventricular size. Normal right ventricular systolic function. Left Atrium: The left atrium is normal in size. Right Atrium: The right atrium is normal in size. Mitral Valve: Mitral valve leaflets appear mildly thickened. Mild mitral annular calcification. Trace mitral regurgitation. Aortic Valve: No significant aortic stenosis or insufficiency. Aortic cusps appear mildly calcified. Tricuspid Valve: Normal appearance of the tricuspid valve. Right ventricular systolic pressure is consistent with mild pulmonary hypertension. Estimated peak PA systolic pressure 40 mmHg. There is mild tricuspid regurgitation. Pulmonic Valve: Normal pulmonic valve appearance. Pericardium: Normal pericardium with no significant pericardial effusion. Aorta: Normal aortic root. IVC: Normal size and normal respiratory collapse consistent with normal right atrial pressure. Conclusions Normal left ventricular systolic function. Normal left ventricular cavity size. Moderate concentric left ventricular hypertrophy. Ejection fraction is visually estimated at 65 %. Tissue Doppler/Mitral Doppler indices are consistent with impaired relaxation (Stage I diastolic dysfunction). Normal right ventricular size. Normal right ventricular systolic function. The left atrium is normal in size. No significant aortic stenosis or insufficiency. Aortic cusps appear mildly calcified. Normal appearance of the tricuspid valve. Right ventricular systolic pressure is consistent with mild pulmonary hypertension. Estimated peak PA systolic pressure 40 mmHg. There is mild tricuspid regurgitation. Normal aortic root. Normal size and normal respiratory collapse consistent with normal right atrial pressure. No Vegetation, masses, or thrombi seen. Electronically Signed By: Junaid Lester 01-Mar-2017 21:17:07 -0700 Patient Name: DAMARI FISHER Study Date: 01-Mar-2017 [id number]
--- NOTE | 2017-03-01 21:26 | CONS ---
Date/Time of Note Date/Time of Note DATE: 03/01/17 TIME: 20:59 Assessment/Plan Assessment/Plan Chief Complaint/Hosp Course Impression: # chest pain- pt with h/o of CAD, PCI to LAD in 2002 and 2003. pt had small trop leak 0.4 at [facility] [place] 2 weeks ago, currently r/o for ACS, no current cp or ekg changes. echo without wma. consider stress testing if recurrent pain or exertional pain, otherwise would cont medical mgmt - cont asa, statin, bb - prn nitrate - no further cardiac eval needed a this time - cont pt assessment, monitor for recurrent pain # acute on chronic diastolic hf- pt with recent admission for this as well, normal ef on echo at [facility] and here. bnp elevated, mild chf on cxr. symptomatically improved with lasix - lasix switch to po - watch i/o, low na diet - cont bb - bp control # HTN- 150-160s at home prior to arrival per family, now controlled - cont bb - consider acei if bp elevated # HLD- on statin continue # recent UTI- s/p abx, no dysuria Problems: Consultation Date/Type/Reason Admit Date/Time Feb 28, 2017 at 16:18 Initial Consult Date 02/28/2017 Type of Consultation: cardiology Reason for Consultation chest pain, sob Referring Provider: LAZARO PARRY MD 24 HR Interval Summary Free Text/Dictation no acute events. pt states feels better. no cp/sob currently tele reviewed: nsr, no events Detailed Summary ENT: no complaints Respiratory: no complaints Cardiovascular: no complaints Gastrointestinal: no complaints Exam/Review of Systems Vital Signs Vitals Vital Signs Date Time Temp Pulse Resp B/P Pulse Ox O2 Delivery O2 Flow Rate FiO2 03/01/17 20:13 71 03/01/17 19:56 98.7 18 117/56 92 03/01/17 19:49 Nasal Cannula 2.0 Intake and Output 02/28/17 02/28/17 03/01/17 15:00 23:00 07:00 Intake Total 600 ml Balance 600 ml Exam Constitutional: alert (difficulty hearing), oriented Psych: no complaints Head: normocephalic Eyes: EOMI ENMT: mucosa pink and moist, nl external ears & nose Neck: non-tender, supple Respiratory: crackles/rales (bases), normal air movement Cardiovascular: nl pulses, regular rate and rhythm, systolic murmur, No irregular rhythm Gastrointestinal: non-tender, soft Musculoskeletal: nl extremities to inspection, nl gait and stance Extremities: normal pulses Neurological: PRESS OPERATOR HELPER II-XII intact Results Result Diagram: 03/01/17 0651 03/01/17 0651 Results 24 hrs Laboratory Tests Test 02/28/17 21:34 02/28/17 23:18 03/01/17 02:00 03/01/17 06:51 Bedside Glucose 183 143 140 White Blood Count 5.6 Red Blood Count 3.35 L Hemoglobin 9.3 L Hematocrit 30.0 L Mean Corpuscular Volume 89.6 Mean Corpuscular Hemoglobin 27.8 L Mean Corpuscular Hemoglobin Concent 31.0 L Red Cell Distribution Width 13.0 Platelet Count 323 Mean Platelet Volume 9.0 Neutrophils % 45.3 Lymphocytes % 35.0 Monocytes % 11.0 Eosinophils % 8.0 H Basophils % 0.5 Nucleated Red Blood Cells % 0.0 Neutrophils # 2.6 Lymphocytes # 2.0 Monocytes # 0.6 Eosinophils # 0.5 Basophils # 0.0 Nucleated Red Blood Cells # 0.0 Sodium Level 132 L Potassium Level 4.5 Chloride Level 95 L Carbon Dioxide Level 33 H Anion Gap 9 Blood Urea Nitrogen 21 H Creatinine 0.79 Glucose Level 111 # Calcium Level 9.2 Phosphorus Level 5.5 H Magnesium Level 1.7 Iron Level 39 Total Iron Binding Capacity 350 Percent Iron Saturation 11 L Ferritin 21.1 Total Bilirubin 0.2 Direct Bilirubin 0.00 Indirect Bilirubin 0.2 Aspartate Amino Transf (AST/SGOT) 20 Alanine Aminotransferase (ALT/SGPT) 18 Alkaline Phosphatase 67 Troponin I < 0.012 Total Protein 6.2 # Albumin 2.9 L Globulin 3.30 H Albumin/Globulin Ratio 0.87 Thyroid Stimulating Hormone (TSH) 3.120 Test 03/01/17 07:17 03/01/17 11:45 03/01/17 17:33 Bedside Glucose 119 147 119 Medications Medications Current Medications Nitroglycerin (Nitroglycerin (Sl Tab) 0.4 Mg) 1 tab Q5M PRN SL CHEST PAIN; Start 02/28/17 at 19:00 Acetaminophen (Tylenol Tab) 650 mg Q6H PRN PO PAIN LEVEL 1-3 OR FEVER; Start at 19:00 Enoxaparin Sodium (Lovenox) 40 mg DAILY SC Last administered on 03/01/17 08:42 ; Admin Dose 40 MG; Start 03/01/17 at 09:00 Aspirin (Halfprin) 162 mg DAILY PO Last administered on 03/01/17 08:28; Admin Dose 162 MG; Start 03/01/17 at 09:00 Atorvastatin Calcium (Lipitor) 40 mg HS PO Last administered on 02/28/17 21:35 ; Admin Dose 40 MG; Start 02/28/17 at 21:00 Folic Acid (Folic Acid) 1 mg DAILY PO Last administered on 03/01/17 08:27; Admin Dose 1 MG; Start 03/01/17 at 09:00 Gabapentin (Neurontin) 100 mg TID PO Last administered on 03/01/17 12:04; Admin Dose 100 MG; Start 02/28/17 at 21:00 Metoprolol Succinate (Toprol Xl) 50 mg DAILY PO Last administered on 03/01/17 08:29; Admin Dose 50 MG; Start 03/01/17 at 09:00 Fish Oil (Fish Oil) 2,000 mg DAILY PO Last administered on 03/01/17 08:27; Admin Dose 2,000 MG; Start 03/01/17 at 09:00 Senna (Senokot) 2 tab DAILY PO Last administered on 03/01/17 08:28; Admin Dose 2 TAB; Start 03/01/17 at 09:00 Alprazolam (Xanax) 0.5 mg Q6 PRN PO ANXIETY Last administered on 03/01/17 04: 18; Admin Dose 0.5 MG; Start 02/28/17 at 19:00 Diagnostic Test (Pha) (Accu-Chek) 1 ea 02 XX ; Start 03/01/17 at 02:00 Furosemide (Lasix) 40 mg DAILY IV Last administered on 03/01/17 08:27; Admin Dose 40 MG; Start 03/01/17 at 09:00 Miscellaneous Information 1 ea NOTE XX ; Start 02/28/17 at 21:00 Glucose (Glutose) 15 gm Q15M PRN PO DECREASED GLUCOSE; Start 02/28/17 at 21:00 Glucose (Glutose) 22.5 gm Q15M PRN PO DECREASED GLUCOSE; Start 02/28/17 at 21: 00 Dextrose (D50w Syringe) 25 ml Q15M PRN IV DECREASED GLUCOSE; Start 02/28/17 at 21:00 Dextrose (D50w Syringe) 50 ml Q15M PRN IV DECREASED GLUCOSE; Start 02/28/17 at 21:00 Glucagon (Glucagen) 1 mg Q15M PRN IM DECREASED GLUCOSE; Start 02/28/17 at 21:00 Glucose (Glutose) 15 gm Q15M PRN BUCCAL DECREASED GLUCOSE; Start 02/28/17 at 21 :00 Pantoprazole (Protonix Tab) 40 mg DAILY@06 PO Last administered on 03/01/17 06 :04; Admin Dose 40 MG; Start 03/01/17 at 06:00 Acetaminophen/ Hydrocodone Bitart ([place] (10/325)) 2 tab Q8H PRN PO PAIN LEVEL 7-10 Last administered on 03/01/17 15:44; Admin Dose 2 TAB; Start 03/01/17 at 10:00 Procedures Procedures tele reviewed per hpi cxr images reviewed, mild pulm edema AYO LESTER Mar 01, 2017 21:09
[2017-03-02] VITALS (11 sets, daily range): BP systolic 94–128; BP diastolic 42–93; PULSE 65–69; RESP 20
[2017-03-02] MEDS: ACCU-CHEK XX SCH ×2 (01:03→23:45)
[2017-03-02] MEDS: PANTOPRAZOLE (EC) 40 MG TAB PO SCH (06:39)
[2017-03-02] MEDS: LEVOTHYROXINE 100 MCG TAB PO SCH (06:39)
[2017-03-02] MEDS: INSULIN ASPART [NOVOLOG] 3 ML PEN SC SCH ×4 (07:31→20:52)
[2017-03-02] MEDS: metFORMIN 850 MG TAB PO SCH (07:45)
[2017-03-02 07:51] LABS: BASOPHILS % 0.5 % (0.0-2.0); EOSINOPHILS # 0.5 10^3/ul (0.0-0.5); EOSINOPHILS % 7.8 % (0.0-7.0); HEMATOCRIT 30.1 % (37.0-47.0); HEMOGLOBIN 9.2 g/dl (12.0-16.0); LYMPHOCYTES # 2.2 10^3/ul (0.8-2.9); LYMPHOCYTES % 35.3 % (15.0-51.0); MEAN CORPUSCULAR HEMOGLOBIN 27.7 pg (29.0-33.0); MEAN CORPUSCULAR HGB CONC 30.6 g/dl (32.0-37.0); MEAN CORPUSCULAR VOLUME 90.7 fl (82.0-101.0); MEAN PLATELET VOLUME 8.9 fl (7.4-10.4); MONOCYTE # 0.6 10^3/ul (0.3-0.9); MONOCYTES % 10.1 % (0.0-11.0); NEUTROPHIL # 2.8 10^3/ul (1.6-7.5); PLATELET COUNT 336 10^3/UL (140-415); RED BLOOD COUNT 3.32 10^6/ul (4.20-5.40); RED CELL DISTRIBUTION WIDTH 13.2 % (11.5-14.5); WHITE BLOOD COUNT 6.2 10^3/ul (4.8-10.8)
[2017-03-02] MEDS: FUROSEMIDE 40 MG INJ IV SCH (08:52)
[2017-03-02] MEDS: SENNA TAB PO SCH (08:53)
[2017-03-02] MEDS: FISH OIL 1,000 MG CAP PO SCH (08:54)
[2017-03-02] MEDS: FOLIC ACID 1 MG TAB PO SCH (08:54)
[2017-03-02] MEDS: METOPROLOL (XL) 50 MG TAB PO SCH (08:54)
[2017-03-02] MEDS: GABAPENTIN 100 MG CAP PO SCH ×3 (08:55→20:01)
[2017-03-02] MEDS: ASPIRIN (EC) 81 MG TAB PO SCH (08:55)
[2017-03-02] MEDS: ENOXAPARIN 40 MG/0.4 ML SYG SC SCH (09:03)
[2017-03-02 10:05] LABS: ALBUMIN 3.3 g/dl (3.3-4.9); ALBUMIN/GLOBULIN RATIO 0.91; CALCIUM 8.6 mg/dl (8.4-10.2); CREATININE 0.87 mg/dl (0.44-1.00); POTASSIUM 4.6 mmol/L (3.5-5.1); TOTAL PROTEIN 6.9 g/dl (6.1-8.1)
[2017-03-02 10:19] LABS: BILIRUBIN,INDIRECT 0.1 mg/dl (0-1.1); BILIRUBIN,TOTAL 0.1 mg/dl (0.2-1.3)
--- NOTE | 2017-03-02 11:53 | PN ---
Date/Time of Note Date/Time of Note DATE: 03/02/17 TIME: 11:50 Assessment/Plan VTE Prophylaxis VTE Prophylaxis Intervention: LMWH Lines/Catheters [facility] Saline Lock Urinary Cath still in place: No Assessment/Plan Chief Complaint/Hosp Course 1. CHF , she is getting IV Lasix daily . She is asymptomatic; however, her oxygen saturation is low on room air. She is still requiring oxygen. She does have some rales on physical exam at the left base. 2. DM , controlled 3. Debility , due to diffuse arthritis and back pain . 4. Chronic pain syndrome , with opiod dependence 5. hyponatremia , will restrict fluids . Will check labs in a.m. Problems: Subjective 24 Hr Interval Summary Free Text/Dictation She is still requiring oxygen therapy. Her O2 sats on room air are 87-88%. She denies shortness of breath. She is not having any chest pain. Her daughter is in the room with her. Constitutional: improved, no complaints Cardiovascular: no complaints Gastrointestinal: no complaints Genitourinary: no complaints Musculoskeletal: no complaints Neurologic: no complaints Exam/Review of Systems Vital Signs Vitals Vital Signs Date Time Temp Pulse Resp B/P Pulse Ox O2 Delivery O2 Flow Rate FiO2 03/02/17 11:38 97.6 67 20 113/56 98 03/02/17 07:54 Nasal Cannula 2.0 Intake and Output 03/01/17 03/01/17 03/02/17 15:00 23:00 07:00 Intake Total 670 ml 200 ml Output Total 250 ml Balance 670 ml -50 ml Exam Constitutional: alert, frail, oriented Neck: non-tender, supple Respiratory: crackles/rales Cardiovascular: regular rate and rhythm Gastrointestinal: non-tender, soft Musculoskeletal: nl extremities to inspection Results Result Diagram: 03/02/17 0709 03/02/17 0709 Results 24 hrs Laboratory Tests Test 03/01/17 17:33 03/01/17 21:17 03/02/17 07:09 03/02/17 07:27 Bedside Glucose 119 134 121 White Blood Count 6.2 Red Blood Count 3.32 L Hemoglobin 9.2 L Hematocrit 30.1 L Mean Corpuscular Volume 90.7 Mean Corpuscular Hemoglobin 27.7 L Mean Corpuscular Hemoglobin Concent 30.6 L Red Cell Distribution Width 13.2 Platelet Count 336 Mean Platelet Volume 8.9 Neutrophils % 46.0 Lymphocytes % 35.3 Monocytes % 10.1 Eosinophils % 7.8 H Basophils % 0.5 Nucleated Red Blood Cells % 0.0 Neutrophils # 2.8 Lymphocytes # 2.2 Monocytes # 0.6 Eosinophils # 0.5 Basophils # 0.0 Nucleated Red Blood Cells # 0.0 Sodium Level 132 L Potassium Level 4.6 Chloride Level 95 L Carbon Dioxide Level 30 Anion Gap 12 Blood Urea Nitrogen 22 H Creatinine 0.87 Glucose Level 119 Calcium Level 8.6 Total Bilirubin 0.1 L Direct Bilirubin 0.00 Indirect Bilirubin 0.1 Aspartate Amino Transf (AST/SGOT) 24 Alanine Aminotransferase (ALT/SGPT) 20 Alkaline Phosphatase 66 Total Protein 6.9 Albumin 3.3 Globulin 3.60 H Albumin/Globulin Ratio 0.91 Medications Medications Current Medications Nitroglycerin (Nitroglycerin (Sl Tab) 0.4 Mg) 1 tab Q5M PRN SL CHEST PAIN; Start 02/28/17 at 19:00 Acetaminophen (Tylenol Tab) 650 mg Q6H PRN PO PAIN LEVEL 1-3 OR FEVER; Start at 19:00 Enoxaparin Sodium (Lovenox) 40 mg DAILY SC Last administered on 03/02/17 09:03 ; Admin Dose 40 MG; Start 03/01/17 at 09:00 Aspirin (Halfprin) 162 mg DAILY PO Last administered on 03/02/17 08:55; Admin Dose 162 MG; Start 03/01/17 at 09:00 Atorvastatin Calcium (Lipitor) 40 mg HS PO Last administered on 03/01/17 21:14 ; Admin Dose 40 MG; Start 02/28/17 at 21:00 Folic Acid (Folic Acid) 1 mg DAILY PO Last administered on 03/02/17 08:54; Admin Dose 1 MG; Start 03/01/17 at 09:00 Gabapentin (Neurontin) 100 mg TID PO Last administered on 03/02/17 08:55; Admin Dose 100 MG; Start 02/28/17 at 21:00 Metoprolol Succinate (Toprol Xl) 50 mg DAILY PO Last administered on 03/02/17 08:54; Admin Dose 50 MG; Start 03/01/17 at 09:00 Fish Oil (Fish Oil) 2,000 mg DAILY PO Last administered on 03/02/17 08:54; Admin Dose 2,000 MG; Start 03/01/17 at 09:00 Senna (Senokot) 2 tab DAILY PO Last administered on 03/02/17 08:53; Admin Dose 2 TAB; Start 03/01/17 at 09:00 Alprazolam (Xanax) 0.5 mg Q6 PRN PO ANXIETY Last administered on 03/01/17 21: 15; Admin Dose 0.5 MG; Start 02/28/17 at 19:00 Diagnostic Test (Pha) (Accu-Chek) 1 ea 02 XX ; Start 03/01/17 at 02:00 Furosemide (Lasix) 40 mg DAILY IV Last administered on 03/02/17 08:52; Admin Dose 40 MG; Start 03/01/17 at 09:00 Miscellaneous Information 1 ea NOTE XX ; Start 02/28/17 at 21:00 Glucose (Glutose) 15 gm Q15M PRN PO DECREASED GLUCOSE; Start 02/28/17 at 21:00 Glucose (Glutose) 22.5 gm Q15M PRN PO DECREASED GLUCOSE; Start 02/28/17 at 21: 00 Dextrose (D50w Syringe) 25 ml Q15M PRN IV DECREASED GLUCOSE; Start 02/28/17 at 21:00 Dextrose (D50w Syringe) 50 ml Q15M PRN IV DECREASED GLUCOSE; Start 02/28/17 at 21:00 Glucagon (Glucagen) 1 mg Q15M PRN IM DECREASED GLUCOSE; Start 02/28/17 at 21:00 Glucose (Glutose) 15 gm Q15M PRN BUCCAL DECREASED GLUCOSE; Start 02/28/17 at 21 :00 Pantoprazole (Protonix Tab) 40 mg DAILY@06 PO Last administered on 03/02/17 06 :39; Admin Dose 40 MG; Start 03/01/17 at 06:00 Acetaminophen/ Hydrocodone Bitart ([place] (10/325)) 2 tab Q8H PRN PO PAIN LEVEL 7-10 Last administered on 03/01/17 23:44; Admin Dose 2 TAB; Start 03/01/17 at 10:00 LAZARO PARRY MD Mar 02, 2017 11:52
[2017-03-02] MEDS: HYDROCODONE/APAP (10/325) TAB PO PRN ×2 (11:55→20:01)
--- NOTE | 2017-03-02 16:53 | CONS ---
Date/Time of Note Date/Time of Note DATE: 03/02/17 TIME: 16:51 Assessment/Plan Assessment/Plan Chief Complaint/Hosp Course Impression: # chest pain- pt with h/o of CAD, PCI to LAD in 2002 and 2003. pt had small trop leak 0.4 at [facility] 2 weeks ago, currently r/o for ACS, no current cp or ekg changes. echo without wma. consider stress testing if recurrent pain or exertional pain, otherwise would cont medical mgmt - cont asa, statin, bb - prn nitrate - no further cardiac eval needed a this time - cont pt assessment, monitor for recurrent pain # acute on chronic diastolic hf- pt with recent admission for this as well, normal ef on echo at [place] and here. bnp elevated, mild chf on cxr. symptomatically improved with lasix - cont diuresis with lasix, when o2 status improves can switch over to po lasix as likely will need to cont diuretics as outpt as well - watch i/o, low na diet - cont bb - bp control # HTN- 150-160s at home prior to arrival per family, now controlled - cont bb, no additional therapy as now controlled, lower side # HLD- on statin continue # recent UTI- s/p abx, no dysuria Problems: Consultation Date/Type/Reason Admit Date/Time Feb 28, 2017 at 16:18 Initial Consult Date 02/28/2017 Type of Consultation: cardiology Referring Provider: LAZARO PARRY MD 24 HR Interval Summary Free Text/Dictation no acute events. pt states no cp, sob improved, off o2 while eating this am. comfortable. no n/v, abd pain. spo2 remains low however off o2. Detailed Summary ENT: no complaints Respiratory: no complaints Cardiovascular: no complaints Gastrointestinal: no complaints Exam/Review of Systems Vital Signs Vitals Vital Signs Date Time Temp Pulse Resp B/P Pulse Ox O2 Delivery O2 Flow Rate FiO2 03/02/17 16:33 66 03/02/17 15:39 97.9 20 96/42 98 03/02/17 07:54 Nasal Cannula 2.0 Intake and Output 03/01/17 03/01/17 03/02/17 15:00 23:00 07:00 Intake Total 670 ml 200 ml Output Total 250 ml Balance 670 ml -50 ml Exam Constitutional: alert (difficulty hearing), oriented Psych: no complaints Head: normocephalic Eyes: EOMI ENMT: mucosa pink and moist, nl external ears & nose Neck: non-tender, supple Respiratory: crackles/rales (bases), normal air movement Cardiovascular: nl pulses, regular rate and rhythm, systolic murmur, No irregular rhythm Gastrointestinal: non-tender, soft Musculoskeletal: nl extremities to inspection, nl gait and stance Extremities: normal pulses Neurological: [employer] II-XII intact Results Result Diagram: 03/02/17 0709 03/02/17 0709 Results 24 hrs Laboratory Tests Test 03/01/17 17:33 03/01/17 21:17 03/02/17 07:09 03/02/17 07:27 Bedside Glucose 119 134 121 White Blood Count 6.2 Red Blood Count 3.32 L Hemoglobin 9.2 L Hematocrit 30.1 L Mean Corpuscular Volume 90.7 Mean Corpuscular Hemoglobin 27.7 L Mean Corpuscular Hemoglobin Concent 30.6 L Red Cell Distribution Width 13.2 Platelet Count 336 Mean Platelet Volume 8.9 Neutrophils % 46.0 Lymphocytes % 35.3 Monocytes % 10.1 Eosinophils % 7.8 H Basophils % 0.5 Nucleated Red Blood Cells % 0.0 Neutrophils # 2.8 Lymphocytes # 2.2 Monocytes # 0.6 Eosinophils # 0.5 Basophils # 0.0 Nucleated Red Blood Cells # 0.0 Sodium Level 132 L Potassium Level 4.6 Chloride Level 95 L Carbon Dioxide Level 30 Anion Gap 12 Blood Urea Nitrogen 22 H Creatinine 0.87 Glucose Level 119 Calcium Level 8.6 Total Bilirubin 0.1 L Direct Bilirubin 0.00 Indirect Bilirubin 0.1 Aspartate Amino Transf (AST/SGOT) 24 Alanine Aminotransferase (ALT/SGPT) 20 Alkaline Phosphatase 66 Total Protein 6.9 Albumin 3.3 Globulin 3.60 H Albumin/Globulin Ratio 0.91 Test 03/02/17 12:18 Bedside Glucose 181 Medications Medications Current Medications Nitroglycerin (Nitroglycerin (Sl Tab) 0.4 Mg) 1 tab Q5M PRN SL CHEST PAIN; Start 02/28/17 at 19:00 Acetaminophen (Tylenol Tab) 650 mg Q6H PRN PO PAIN LEVEL 1-3 OR FEVER; Start at 19:00 Enoxaparin Sodium (Lovenox) 40 mg DAILY SC Last administered on 03/02/17t 09:03 ; Admin Dose 40 MG; Start 03/01/17 at 09:00 Aspirin (Halfprin) 162 mg DAILY PO Last administered on 03/02/17 08:55; Admin Dose 162 MG; Start 03/01/17 at 09:00 Atorvastatin Calcium (Lipitor) 40 mg HS PO Last administered on 03/01/17 21:14 ; Admin Dose 40 MG; Start 02/28/17 at 21:00 Folic Acid (Folic Acid) 1 mg DAILY PO Last administered on 03/02/17 08:54; Admin Dose 1 MG; Start 03/01/17 at 09:00 Gabapentin (Neurontin) 100 mg TID PO Last administered on 03/02/17 12:22; Admin Dose 100 MG; Start 02/28/17 at 21:00 Metoprolol Succinate (Toprol Xl) 50 mg DAILY PO Last administered on 03/02/17 08:54; Admin Dose 50 MG; Start 03/01/17 at 09:00 Fish Oil (Fish Oil) 2,000 mg DAILY PO Last administered on 03/02/17 08:54; Admin Dose 2,000 MG; Start 03/01/17 at 09:00 Senna (Senokot) 2 tab DAILY PO Last administered on 03/02/17 08:53; Admin Dose 2 TAB; Start 03/01/17 at 09:00 Alprazolam (Xanax) 0.5 mg Q6 PRN PO ANXIETY Last administered on 03/01/17 21: 15; Admin Dose 0.5 MG; Start 02/28/17 at 19:00 Diagnostic Test (Pha) (Accu-Chek) 1 ea 02 XX ; Start 03/01/17 at 02:00 Furosemide (Lasix) 40 mg DAILY IV Last administered on 03/02/17 08:52; Admin Dose 40 MG; Start 03/01/17 at 09:00 Miscellaneous Information 1 ea NOTE XX ; Start 02/28/17 at 21:00 Glucose (Glutose) 15 gm Q15M PRN PO DECREASED GLUCOSE; Start 02/28/17 at 21:00 Glucose (Glutose) 22.5 gm Q15M PRN PO DECREASED GLUCOSE; Start 02/28/17 at 21: 00 Dextrose (D50w Syringe) 25 ml Q15M PRN IV DECREASED GLUCOSE; Start 02/28/17 at 21:00 Dextrose (D50w Syringe) 50 ml Q15M PRN IV DECREASED GLUCOSE; Start 02/28/17 at 21:00 Glucagon (Glucagen) 1 mg Q15M PRN IM DECREASED GLUCOSE; Start 02/28/17 at 21:00 Glucose (Glutose) 15 gm Q15M PRN BUCCAL DECREASED GLUCOSE; Start 02/28/17 at 21 :00 Pantoprazole (Protonix Tab) 40 mg DAILY@06 PO Last administered on 03/02/17 06 :39; Admin Dose 40 MG; Start 03/01/17 at 06:00 Acetaminophen/ Hydrocodone Bitart ([place] (10/325)) 2 tab Q8H PRN PO PAIN LEVEL 7-10 Last administered on 03/02/17 11:55; Admin Dose 2 TAB; Start 03/01/17 at 10:00 Procedures Procedures tele reviewed no events. remains nsr or sinus jasen AYO LESTER Mar 02, 2017 16:53
[2017-03-02] MEDS: ATORVASTATIN 40 MG TAB PO SCH (20:01)
[2017-03-02] MEDS: ALPRAZOLAM 0.25 MG TAB PO PRN (20:02)
[2017-03-03] VITALS (11 sets, daily range): BP systolic 89–141; BP diastolic 36–69; PULSE 63–87; RESP 16–20
[2017-03-03] MEDS: HYDROCODONE/APAP (10/325) TAB PO PRN ×3 (05:55→22:27)
[2017-03-03] MEDS: PANTOPRAZOLE (EC) 40 MG TAB PO SCH (05:55)
[2017-03-03] MEDS: ALPRAZOLAM 0.25 MG TAB PO PRN (05:56)
[2017-03-03] MEDS: LEVOTHYROXINE 100 MCG TAB PO SCH (06:00)
[2017-03-03 07:39] LABS: ALBUMIN 3.3 g/dl (3.3-4.9); ALBUMIN/GLOBULIN RATIO 0.91; BILIRUBIN,INDIRECT 0.1 mg/dl (0-1.1); BILIRUBIN,TOTAL 0.1 mg/dl (0.2-1.3); CALCIUM 8.8 mg/dl (8.4-10.2); CREATININE 0.83 mg/dl (0.44-1.00); POTASSIUM 4.4 mmol/L (3.5-5.1); TOTAL PROTEIN 6.9 g/dl (6.1-8.1)
[2017-03-03] MEDS: INSULIN ASPART [NOVOLOG] 3 ML PEN SC SCH ×4 (07:55→21:00)
[2017-03-03] MEDS: ASPIRIN (EC) 81 MG TAB PO SCH (08:15)
[2017-03-03] MEDS: metFORMIN 850 MG TAB PO SCH (08:15)
[2017-03-03] MEDS: SENNA TAB PO SCH (08:15)
[2017-03-03] MEDS: GABAPENTIN 100 MG CAP PO SCH ×3 (08:16→21:19)
[2017-03-03] MEDS: METOPROLOL (XL) 50 MG TAB PO SCH (08:16)
[2017-03-03] MEDS: FOLIC ACID 1 MG TAB PO SCH (08:18)
[2017-03-03] MEDS: FISH OIL 1,000 MG CAP PO SCH (08:18)
[2017-03-03] MEDS: FUROSEMIDE 40 MG INJ IV SCH (08:19)
[2017-03-03] MEDS: ENOXAPARIN 40 MG/0.4 ML SYG SC SCH (08:45)
--- NOTE | 2017-03-03 10:46 | PN ---
Date/Time of Note Date/Time of Note DATE: 03/03/17 TIME: 10:43 Assessment/Plan VTE Prophylaxis VTE Prophylaxis Intervention: anti-embolic stocking Lines/Catheters IV Catheter Type (from Nrs): Saline Lock Urinary Cath still in place: No Assessment/Plan Assessment/Plan 1. Acute CHF - with normal EF on TTE. Could be 2/2 chronic deconditioning. Improving on IV lasix, still has some rales at the left base. - cont Lasix IV 40mg daily for now, transition to PO per Cardiology - re-check BNP tomorrow AM - ambulation, discussed checking oxygen level on room air with nursing 2. DM , controlled 3. Debility , due to diffuse arthritis and back pain . 4. Chronic pain syndrome , with opiod dependence - stable, on home meds 5. hyponatremia - stable, on fluid restriction. Subjective 24 Hr Interval Summary Free Text/Dictation Feeling better, denies SOB. Reports that she does not feel the needs for oxygen at rest. No further episodes of chest pain. Constitutional: improved, no complaints Exam/Review of Systems Vital Signs Vitals Vital Signs Date Time Temp Pulse Resp B/P Pulse Ox O2 Delivery O2 Flow Rate FiO2 03/03/17 08:56 87 03/03/17 08:00 Nasal Cannula 3.0 03/03/17 07:01 98.2 16 111/55 99 Intake and Output 03/02/17 03/02/17 03/03/17 14:59 22:59 06:59 Intake Total 960 ml 200 ml Output Total 700 ml 290 ml Balance 260 ml -90 ml Exam Respiratory: crackles/rales (at the bases) Cardiovascular: nl pulses, regular rate and rhythm Results Result Diagram: 03/02/17 0709 03/03/17 0546 Results 24 hrs Laboratory Tests Test 03/02/17 12:18 03/02/17 17:20 03/02/17 20:07 03/03/17 05:46 Bedside Glucose 181 188 123 Sodium Level 132 L Potassium Level 4.4 Chloride Level 93 L Carbon Dioxide Level 33 H Anion Gap 10 Blood Urea Nitrogen 23 H Creatinine 0.83 Glucose Level 127 Calcium Level 8.8 Total Bilirubin 0.1 L Direct Bilirubin 0.00 Indirect Bilirubin 0.1 Aspartate Amino Transf (AST/SGOT) 24 Alanine Aminotransferase (ALT/SGPT) 22 Alkaline Phosphatase 66 Total Protein 6.9 Albumin 3.3 Globulin 3.60 H Albumin/Globulin Ratio 0.91 Test 03/03/17 08:12 Bedside Glucose 131 Medications Medications Current Medications Nitroglycerin (Nitroglycerin (Sl Tab) 0.4 Mg) 1 tab Q5M PRN SL CHEST PAIN; Start 02/28/17 at 19:00 Acetaminophen (Tylenol Tab) 650 mg Q6H PRN PO PAIN LEVEL 1-3 OR FEVER Last administered on 03/03/17 06:00; Admin Dose 650 MG; Start 02/28/17 at 19:00 Enoxaparin Sodium (Lovenox) 40 mg DAILY SC Last administered on 03/03/17 08:45 ; Admin Dose 40 MG; Start 03/01/17 at 09:00 Aspirin (Halfprin) 162 mg DAILY PO Last administered on 03/03/17 08:15; Admin Dose 162 MG; Start 03/01/17 at 09:00 Atorvastatin Calcium (Lipitor) 40 mg HS PO Last administered on 03/02/17 20:01 ; Admin Dose 40 MG; Start 02/28/17 at 21:00 Folic Acid (Folic Acid) 1 mg DAILY PO Last administered on 03/03/17 08:18; Admin Dose 1 MG; Start 03/01/17 at 09:00 Gabapentin (Neurontin) 100 mg TID PO Last administered on 03/03/17 08:16; Admin Dose 100 MG; Start 02/28/17 at 21:00 Metoprolol Succinate (Toprol Xl) 50 mg DAILY PO Last administered on 03/03/17 08:16; Admin Dose 50 MG; Start 03/01/17 at 09:00 Fish Oil (Fish Oil) 2,000 mg DAILY PO Last administered on 03/03/17 08:18; Admin Dose 2,000 MG; Start 03/01/17 at 09:00 Senna (Senokot) 2 tab DAILY PO Last administered on 03/03/17 08:15; Admin Dose 2 TAB; Start 03/01/17 at 09:00 Alprazolam (Xanax) 0.5 mg Q6 PRN PO ANXIETY Last administered on 03/03/17 05: 56; Admin Dose 0.5 MG; Start 02/28/17 at 19:00 Diagnostic Test (Pha) (Accu-Chek) 1 ea 02 XX ; Start 03/01/17 at 02:00 Furosemide (Lasix) 40 mg DAILY IV Last administered on 03/03/17 08:19; Admin Dose 40 MG; Start 03/01/17 at 09:00 Miscellaneous Information 1 ea NOTE XX ; Start 02/28/17 at 21:00 Glucose (Glutose) 15 gm Q15M PRN PO DECREASED GLUCOSE; Start 02/28/17 at 21:00 Glucose (Glutose) 22.5 gm Q15M PRN PO DECREASED GLUCOSE; Start 02/28/17 at 21: 00 Dextrose (D50w Syringe) 25 ml Q15M PRN IV DECREASED GLUCOSE; Start 02/28/17 at 21:00 Dextrose (D50w Syringe) 50 ml Q15M PRN IV DECREASED GLUCOSE; Start 02/28/17 at 21:00 Glucagon (Glucagen) 1 mg Q15M PRN IM DECREASED GLUCOSE; Start 02/28/17 at 21:00 Glucose (Glutose) 15 gm Q15M PRN BUCCAL DECREASED GLUCOSE; Start 02/28/17 at 21 :00 Pantoprazole (Protonix Tab) 40 mg DAILY@06 PO Last administered on 03/03/17 05 :55; Admin Dose 40 MG; Start 03/01/17 at 06:00 Acetaminophen/ Hydrocodone Bitart ([place] (10/325)) 2 tab Q8H PRN PO PAIN LEVEL 7-10 Last administered on 03/03/17 05:55; Admin Dose 2 TAB; Start 03/01/17 at 10:00 KYAW GUTHRIE MD Mar 03, 2017 10:45
--- NOTE | 2017-03-03 15:01 | CONS ---
Date/Time of Note Date/Time of Note DATE: 03/03/17 TIME: 14:58 Assessment/Plan Assessment/Plan Additional Assessment/Plan 86 yowf w/ diastolic HF, DM and other issues who presented with volume overload. Improving with IV lasix and appears close to euvolemic. Would change to PO lasix tomorrow. Continue aspirin and metoprolol. Wean off O2. Consultation Date/Type/Reason Admit Date/Time Mar 02, 2017 at 12:05 Initial Consult Date Type of Consultation: cardiology Referring Provider: LAZARO PARRY MD 24 HR Interval Summary Free Text/Dictation Pt feels better. Does not notice any issues w/ breathing. Denies chest pressure. Telemetry - sinus rhythm Exam/Review of Systems Vital Signs Vitals Vital Signs Date Time Temp Pulse Resp B/P Pulse Ox O2 Delivery O2 Flow Rate FiO2 03/03/17 12:28 63 03/03/17 11:54 98.2 16 132/53 93 03/03/17 08:00 Nasal Cannula 3.0 Intake and Output 03/02/17 03/02/17 03/03/17 15:00 23:00 07:00 Intake Total 960 ml 200 ml Output Total 700 ml 290 ml Balance 260 ml -90 ml Exam Constitutional: alert, No distress Neck: other (JVP ~ 8-9 cm) Respiratory: other (slightly decreased at bases, o/w clear) Cardiovascular: regular rate and rhythm, No systolic murmur Extremities: other (no edema) Results Result Diagram: 03/02/17 0709 03/03/17 0546 Results 24 hrs Laboratory Tests Test 03/02/17 17:20 03/02/17 20:07 03/03/17 05:46 03/03/17 08:12 Bedside Glucose 188 123 131 Sodium Level 132 L Potassium Level 4.4 Chloride Level 93 L Carbon Dioxide Level 33 H Anion Gap 10 Blood Urea Nitrogen 23 H Creatinine 0.83 Glucose Level 127 Calcium Level 8.8 Total Bilirubin 0.1 L Direct Bilirubin 0.00 Indirect Bilirubin 0.1 Aspartate Amino Transf (AST/SGOT) 24 Alanine Aminotransferase (ALT/SGPT) 22 Alkaline Phosphatase 66 Total Protein 6.9 Albumin 3.3 Globulin 3.60 H Albumin/Globulin Ratio 0.91 Test 03/03/17 11:59 Bedside Glucose 160 Medications Medications Current Medications Nitroglycerin (Nitroglycerin (Sl Tab) 0.4 Mg) 1 tab Q5M PRN SL CHEST PAIN; Start 02/28/17 at 19:00 Acetaminophen (Tylenol Tab) 650 mg Q6H PRN PO PAIN LEVEL 1-3 OR FEVER Last administered on 03/03/17 06:00; Admin Dose 650 MG; Start 02/28/17 at 19:00 Enoxaparin Sodium (Lovenox) 40 mg DAILY SC Last administered on 03/03/17 08:45 ; Admin Dose 40 MG; Start 03/01/17 at 09:00 Aspirin (Halfprin) 162 mg DAILY PO Last administered on 03/03/17 08:15; Admin Dose 162 MG; Start 03/01/17 at 09:00 Atorvastatin Calcium (Lipitor) 40 mg HS PO Last administered on 03/02/17 20:01 ; Admin Dose 40 MG; Start 02/28/17 at 21:00 Folic Acid (Folic Acid) 1 mg DAILY PO Last administered on 03/03/17 08:18; Admin Dose 1 MG; Start 03/01/17 at 09:00 Gabapentin (Neurontin) 100 mg TID PO Last administered on 03/03/17 12:02; Admin Dose 100 MG; Start 02/28/17 at 21:00 Metoprolol Succinate (Toprol Xl) 50 mg DAILY PO Last administered on 03/03/17 08:16; Admin Dose 50 MG; Start 03/01/17 at 09:00 Fish Oil (Fish Oil) 2,000 mg DAILY PO Last administered on 03/03/17 08:18; Admin Dose 2,000 MG; Start 03/01/17 at 09:00 Senna (Senokot) 2 tab DAILY PO Last administered on 03/03/17 08:15; Admin Dose 2 TAB; Start 03/01/17 at 09:00 Alprazolam (Xanax) 0.5 mg Q6 PRN PO ANXIETY Last administered on 03/03/17 05: 56; Admin Dose 0.5 MG; Start 02/28/17 at 19:00 Diagnostic Test (Pha) (Accu-Chek) 1 ea 02 XX ; Start 03/01/17 at 02:00 Furosemide (Lasix) 40 mg DAILY IV Last administered on 03/03/17 08:19; Admin Dose 40 MG; Start 03/01/17 at 09:00 Miscellaneous Information 1 ea NOTE XX ; Start 02/28/17 at 21:00 Glucose (Glutose) 15 gm Q15M PRN PO DECREASED GLUCOSE; Start 02/28/17 at 21:00 Glucose (Glutose) 22.5 gm Q15M PRN PO DECREASED GLUCOSE; Start 02/28/17 at 21: 00 Dextrose (D50w Syringe) 25 ml Q15M PRN IV DECREASED GLUCOSE; Start 02/28/17 at 21:00 Dextrose (D50w Syringe) 50 ml Q15M PRN IV DECREASED GLUCOSE; Start 02/28/17 at 21:00 Glucagon (Glucagen) 1 mg Q15M PRN IM DECREASED GLUCOSE; Start 02/28/17 at 21:00 Glucose (Glutose) 15 gm Q15M PRN BUCCAL DECREASED GLUCOSE; Start 02/28/17 at 21 :00 Pantoprazole (Protonix Tab) 40 mg DAILY@06 PO Last administered on 03/03/17 05 :55; Admin Dose 40 MG; Start 03/01/17 at 06:00 Acetaminophen/ Hydrocodone Bitart ([place] (10/325)) 2 tab Q8H PRN PO PAIN LEVEL 7-10 Last administered on 03/03/17 14:35; Admin Dose 2 TAB; Start 03/01/17 at 10:00 AMA MCGREGOR Mar 03, 2017 15:01
[2017-03-03] MEDS: ATORVASTATIN 40 MG TAB PO SCH (21:19)
[2017-03-04] VITALS (13 sets, daily range): BP systolic 97–143; BP diastolic 47–61; PULSE 64–85; RESP 16–19
[2017-03-04] MEDS: ALPRAZOLAM 0.25 MG TAB PO PRN ×2 (00:10→16:38)
[2017-03-04] MEDS: ACCU-CHEK XX SCH (02:00)
[2017-03-04] MEDS: LEVOTHYROXINE 100 MCG TAB PO SCH (06:26)
[2017-03-04] MEDS: PANTOPRAZOLE (EC) 40 MG TAB PO SCH (06:26)
[2017-03-04] MEDS: INSULIN ASPART [NOVOLOG] 3 ML PEN SC SCH ×4 (07:55→20:44)
[2017-03-04] MEDS: HYDROCODONE/APAP (10/325) TAB PO PRN ×2 (08:13→20:44)
[2017-03-04] MEDS: metFORMIN 850 MG TAB PO SCH (08:13)
[2017-03-04] MEDS: FISH OIL 1,000 MG CAP PO SCH (08:14)
[2017-03-04] MEDS: GABAPENTIN 100 MG CAP PO SCH ×3 (08:14→20:43)
[2017-03-04] MEDS: SENNA TAB PO SCH (08:14)
[2017-03-04] MEDS: ASPIRIN (EC) 81 MG TAB PO SCH (08:14)
[2017-03-04] MEDS: FOLIC ACID 1 MG TAB PO SCH (08:14)
[2017-03-04] MEDS: METOPROLOL (XL) 50 MG TAB PO SCH (08:15)
[2017-03-04] MEDS: FUROSEMIDE 40 MG INJ IV SCH (08:15)
[2017-03-04] MEDS: ENOXAPARIN 40 MG/0.4 ML SYG SC SCH (08:17)
--- NOTE | 2017-03-04 08:41 | PN ---
Date/Time of Note Date/Time of Note DATE: 03/04/17 TIME: 08:39 Assessment/Plan VTE Prophylaxis VTE Prophylaxis Intervention: anti-embolic stocking Lines/Catheters IV Catheter Type (from Nrsg): Saline Lock Urinary Cath still in place: No Assessment/Plan Assessment/Plan 1. Acute CHF - with normal EF on TTE. Could be 2/2 chronic deconditioning. Much improved on IV lasix. BNP 1000--->331 - transition to Lasix 40mg PO daily today - cont ambulation as tolerated - oxygen level low 90's on room air yesterday, needs to work with PT tomorrow prior to discharge 2. DM , controlled 3. Debility , due to diffuse arthritis and back pain . 4. Chronic pain syndrome , with opiod dependence - stable, on home meds 5. hyponatremia - stable, on fluid restriction. Subjective 24 Hr Interval Summary Free Text/Dictation Feeling weak, but did ambulate to nursing station yesterday with walker. Denies SOB. Requesting for bedside commode. Respiratory: no complaints Cardiovascular: no complaints Gastrointestinal: no complaints Exam/Review of Systems Vital Signs Vitals Vital Signs Date Time Temp Pulse Resp B/P Pulse Ox O2 Delivery O2 Flow Rate FiO2 03/04/17 08:26 83 03/04/17 08:11 98.9 17 101/49 97 03/04/17 00:10 2.0 28 03/03/17 20:00 Nasal Cannula Intake and Output 03/03/17 03/03/17 03/04/17 15:00 23:00 07:00 Intake Total 450 ml 200 ml Output Total 1400 ml Balance -950 ml 200 ml Exam Constitutional: alert, oriented, well developed Head: atraumatic, normocephalic Respiratory: crackles/rales (L lung base), diminished breath sounds (L lung base), normal air movement Cardiovascular: nl pulses, regular rate and rhythm Gastrointestinal: nl liver, spleen, non-tender, soft Results Result Diagram: 03/02/17 0709 03/03/17 0546 Results 24 hrs Laboratory Tests Test 03/03/17 11:59 03/03/17 17:12 03/03/17 21:17 03/04/17 05:44 Bedside Glucose 160 143 124 B-Type Natriuretic Peptide 331 Test 03/04/17 08:12 Bedside Glucose 132 Medications Medications Current Medications Nitroglycerin (Nitroglycerin (Sl Tab) 0.4 Mg) 1 tab Q5M PRN SL CHEST PAIN; Start 02/28/17 at 19:00 Acetaminophen (Tylenol Tab) 650 mg Q6H PRN PO PAIN LEVEL 1-3 OR FEVER Last administered on 03/03/17 06:00; Admin Dose 650 MG; Start 02/28/17 at 19:00 Enoxaparin Sodium (Lovenox) 40 mg DAILY SC Last administered on 03/04/17 08:17 ; Admin Dose 40 MG; Start 03/01/17 at 09:00 Aspirin (Halfprin) 162 mg DAILY PO Last administered on 03/04/17 08:14; Admin Dose 162 MG; Start 03/01/17 at 09:00 Atorvastatin Calcium (Lipitor) 40 mg HS PO Last administered on 03/03/17 21:19 ; Admin Dose 40 MG; Start 02/28/17 at 21:00 Folic Acid (Folic Acid) 1 mg DAILY PO Last administered on 03/04/17 08:14; Admin Dose 1 MG; Start 03/01/17 at 09:00 Gabapentin (Neurontin) 100 mg TID PO Last administered on 03/04/17 08:14; Admin Dose 100 MG; Start 02/28/17 at 21:00 Metoprolol Succinate (Toprol Xl) 50 mg DAILY PO Last administered on 03/03/17 08:16; Admin Dose 50 MG; Start 03/01/17 at 09:00 Fish Oil (Fish Oil) 2,000 mg DAILY PO Last administered on 03/04/17 08:14; Admin Dose 2,000 MG; Start 03/01/17 at 09:00 Senna (Senokot) 2 tab DAILY PO Last administered on 03/04/17 08:14; Admin Dose 2 TAB; Start 03/01/17 at 09:00 Alprazolam (Xanax) 0.5 mg Q6 PRN PO ANXIETY Last administered on 03/04/17 00: 10; Admin Dose 0.5 MG; Start 02/28/17 at 19:00 Diagnostic Test (Pha) (Accu-Chek) 1 ea 02 XX ; Start 03/01/17 at 02:00 Furosemide (Lasix) 40 mg DAILY IV Last administered on 03/04/17 08:15; Admin Dose 40 MG; Start 03/01/17 at 09:00 Miscellaneous Information 1 ea NOTE XX ; Start 02/28/17 at 21:00 Glucose (Glutose) 15 gm Q15M PRN PO DECREASED GLUCOSE; Start 02/28/17 at 21:00 Glucose (Glutose) 22.5 gm Q15M PRN PO DECREASED GLUCOSE; Start 02/28/17 at 21: 00 Dextrose (D50w Syringe) 25 ml Q15M PRN IV DECREASED GLUCOSE; Start 02/28/17 at 21:00 Dextrose (D50w Syringe) 50 ml Q15M PRN IV DECREASED GLUCOSE; Start 02/28/17 at 21:00 Glucagon (Glucagen) 1 mg Q15M PRN IM DECREASED GLUCOSE; Start 02/28/17 at 21:00 Glucose (Glutose) 15 gm Q15M PRN BUCCAL DECREASED GLUCOSE; Start 02/28/17 at 21 :00 Pantoprazole (Protonix Tab) 40 mg DAILY@06 PO Last administered on 03/04/17 06 :26; Admin Dose 40 MG; Start 03/01/17 at 06:00 Acetaminophen/ Hydrocodone Bitart ([place] (10/325)) 2 tab Q8H PRN PO PAIN LEVEL 7-10 Last administered on 03/04/17 08:13; Admin Dose 2 TAB; Start 03/01/17 at 10:00 KYAW GUTHRIE MD Mar 04, 2017 08:41
[2017-03-04] MEDS ORDERED: FUROSEMIDE 40 MG TAB PO SCH (09:00)
[2017-03-04] MEDS ORDERED: POLYETHYLENE GLYCOL 17 GM PACKET PO ONE (12:00)
--- NOTE | 2017-03-04 14:33 | CONS ---
Date/Time of Note Date/Time of Note DATE: 03/04/17 TIME: 14:32 Assessment/Plan Assessment/Plan Additional Assessment/Plan 86 yowf w/ diastolic HF, DM and other issues who presented with volume overload. Pt has improved with IV lasix. She appears close to euvolemic on exam. Denies sob. Change to PO lasix today. Wean off O2. Can likely d/c home soon (from a cardiac standpoint). Pt's daughter states that pt is normally on paxil, and she is not receiving it here. Will defer to hospitalist to restart (not aware of a reason it wasn't continued). Continue aspirin and metoprolol succinate. Consultation Date/Type/Reason Admit Date/Time Mar 02, 2017 at 12:05 Type of Consultation: cardiology Referring Provider: LAZARO PARRY MD 24 HR Interval Summary Free Text/Dictation Denies cp or sob. Sat in a chair earlier. Has not walked around much. Exam/Review of Systems Vital Signs Vitals Vital Signs Date Time Temp Pulse Resp B/P Pulse Ox O2 Delivery O2 Flow Rate FiO2 03/04/17 12:18 64 03/04/17 12:03 97.6 19 103/58 99 03/04/17 08:45 Nasal Cannula 2.0 03/04/17 00:10 28 Intake and Output 03/03/17 03/03/17 03/04/17 15:00 23:00 07:00 Intake Total 450 ml 200 ml Output Total 1400 ml Balance -950 ml 200 ml Exam Constitutional: alert, No distress Neck: No jvd Respiratory: clear to auscultation Cardiovascular: regular rate and rhythm, No systolic murmur Extremities: No edema Results Result Diagram: 03/02/17 0709 03/03/17 0546 Results 24 hrs Laboratory Tests Test 03/03/17 17:12 03/03/17 21:17 03/04/17 05:44 03/04/17 08:12 Bedside Glucose 143 124 132 B-Type Natriuretic Peptide 331 Test 03/04/17 12:41 Bedside Glucose 119 Medications Medications Current Medications Nitroglycerin (Nitroglycerin (Sl Tab) 0.4 Mg) 1 tab Q5M PRN SL CHEST PAIN; Start 02/28/17 at 19:00 Acetaminophen (Tylenol Tab) 650 mg Q6H PRN PO PAIN LEVEL 1-3 OR FEVER Last administered on 03/03/17 06:00; Admin Dose 650 MG; Start 02/28/17 at 19:00 Enoxaparin Sodium (Lovenox) 40 mg DAILY SC Last administered on 03/04/17 08:17 ; Admin Dose 40 MG; Start 03/01/17 at 09:00 Aspirin (Halfprin) 162 mg DAILY PO Last administered on 03/04/17 08:14; Admin Dose 162 MG; Start 03/01/17 at 09:00 Atorvastatin Calcium (Lipitor) 40 mg HS PO Last administered on 03/03/17 21:19 ; Admin Dose 40 MG; Start 02/28/17 at 21:00 Folic Acid (Folic Acid) 1 mg DAILY PO Last administered on 03/04/17 08:14; Admin Dose 1 MG; Start 03/01/17 at 09:00 Gabapentin (Neurontin) 100 mg TID PO Last administered on 03/04/17 12:43; Admin Dose 100 MG; Start 02/28/17 at 21:00 Metoprolol Succinate (Toprol Xl) 50 mg DAILY PO Last administered on 03/03/17 08:16; Admin Dose 50 MG; Start 03/01/17 at 09:00 Fish Oil (Fish Oil) 2,000 mg DAILY PO Last administered on 03/04/17 08:14; Admin Dose 2,000 MG; Start 03/01/17 at 09:00 Senna (Senokot) 2 tab DAILY PO Last administered on 03/04/17 08:14; Admin Dose 2 TAB; Start 03/01/17 at 09:00 Alprazolam (Xanax) 0.5 mg Q6 PRN PO ANXIETY Last administered on 03/04/17 00: 10; Admin Dose 0.5 MG; Start 02/28/17 at 19:00 Diagnostic Test (Pha) (Accu-Chek) 1 ea 02 XX ; Start 03/01/17 at 02:00 Miscellaneous Information 1 ea NOTE XX ; Start 02/28/17 at 21:00 Glucose (Glutose) 15 gm Q15M PRN PO DECREASED GLUCOSE; Start 02/28/17 at 21:00 Glucose (Glutose) 22.5 gm Q15M PRN PO DECREASED GLUCOSE; Start 02/28/17 at 21: 00 Dextrose (D50w Syringe) 25 ml Q15M PRN IV DECREASED GLUCOSE; Start 02/28/17 at 21:00 Dextrose (D50w Syringe) 50 ml Q15M PRN IV DECREASED GLUCOSE; Start 02/28/17 at 21:00 Glucagon (Glucagen) 1 mg Q15M PRN IM DECREASED GLUCOSE; Start 02/28/17 at 21:00 Glucose (Glutose) 15 gm Q15M PRN BUCCAL DECREASED GLUCOSE; Start 02/28/17 at 21 :00 Pantoprazole (Protonix Tab) 40 mg DAILY@06 PO Last administered on 03/04/17 06 :26; Admin Dose 40 MG; Start 03/01/17 at 06:00 Acetaminophen/ Hydrocodone Bitart ([place] (10/325)) 2 tab Q8H PRN PO PAIN LEVEL 7-10 Last administered on 03/04/17 08:13; Admin Dose 2 TAB; Start 03/01/17 at 10:00 Furosemide (Lasix) 40 mg DAILY PO ; Start 03/05/17 at 09:00 AMA MCGREGOR Mar 04, 2017 14:33
[2017-03-04] MEDS: ATORVASTATIN 40 MG TAB PO SCH (20:43)
[2017-03-05] VITALS (8 sets, daily range): BP systolic 95–139; BP diastolic 45–58; PULSE 66–86; RESP 19–20
[2017-03-05] MEDS: ACCU-CHEK XX SCH (01:58)
[2017-03-05] MEDS: PANTOPRAZOLE (EC) 40 MG TAB PO SCH (06:13)
[2017-03-05] MEDS: LEVOTHYROXINE 100 MCG TAB PO SCH (06:13)
[2017-03-05] MEDS: INSULIN ASPART [NOVOLOG] 3 ML PEN SC SCH ×2 (07:55→12:30)
[2017-03-05] MEDS: GABAPENTIN 100 MG CAP PO SCH ×2 (08:39→12:20)
[2017-03-05] MEDS: METOPROLOL (XL) 50 MG TAB PO SCH (08:40)
[2017-03-05] MEDS: FOLIC ACID 1 MG TAB PO SCH (08:40)
[2017-03-05] MEDS: FISH OIL 1,000 MG CAP PO SCH (08:40)
[2017-03-05] MEDS: SENNA TAB PO SCH (08:41)
[2017-03-05] MEDS: metFORMIN 850 MG TAB PO SCH (08:41)
[2017-03-05] MEDS: ASPIRIN (EC) 81 MG TAB PO SCH (08:42)
[2017-03-05] MEDS: ENOXAPARIN 40 MG/0.4 ML SYG SC SCH (08:47)
[2017-03-05] MEDS: ALPRAZOLAM 0.25 MG TAB PO PRN (08:53)
[2017-03-05] MEDS: HYDROCODONE/APAP (10/325) TAB PO PRN (08:53)
[2017-03-05] MEDS ORDERED: FUROSEMIDE 40 MG TAB PO SCH (09:00)
--- NOTE | 2017-03-05 09:56 | PN ---
Date/Time of Note Date/Time of Note DATE: 03/05/17 TIME: 09:53 Assessment/Plan VTE Prophylaxis VTE Prophylaxis Intervention: LMWH Lines/Catheters [facility]from [facility] Saline [facility] Urinary Cath still in place: No Assessment/Plan Chief Complaint/Hosp Course 1. CHF , she is now on oral furosemide and doing better. She is off oxygen. 2. DM , controlled 3. Debility , due to diffuse arthritis and back pain . 4. Chronic pain syndrome , with opiod dependence 5. hyponatremia , will restrict fluids . Will check labs in a.m. She could be discharged to home today arrangements are being made. Problems: Subjective 24 Hr Interval Summary Free Text/Dictation She is overall feeling better. She is off oxygen. She denies any shortness of breath or chest pain. Constitutional: improved, no complaints Eyes: no complaints ENT: no complaints Respiratory: no complaints Cardiovascular: no complaints Gastrointestinal: no complaints Musculoskeletal: no complaints Exam/Review of Systems Vital Signs Vitals Vital Signs Date Time Temp Pulse Resp B/P Pulse Ox O2 Delivery O2 Flow Rate FiO2 03/05/17 08:00 86 03/05/17 07:52 97.5 20 139/58 96 03/04/17 23:30 2.0 03/04/17 19:58 Nasal Cannula 03/04/17 00:10 28 Intake and Output 03/04/17 03/04/17 03/05/17 15:00 23:00 07:00 Intake Total 500 ml Output Total 900 ml Balance -400 ml Exam Constitutional: alert, frail, oriented ENMT: nl external ears & nose Respiratory: clear to auscultation Cardiovascular: regular rate and rhythm Gastrointestinal: non-tender, soft Musculoskeletal: nl extremities to inspection Results Result Diagram: 03/02/17 0709 03/03/17 0546 Results 24 hrs Laboratory Tests Test 03/04/17 12:41 03/04/17 17:46 03/04/17 20:42 03/05/17 08:36 Bedside Glucose 119 149 138 113 Medications Medications Current Medications Nitroglycerin (Nitroglycerin (Sl Tab) 0.4 Mg) 1 tab Q5M PRN SL CHEST PAIN; Start 02/28/17 at 19:00 Acetaminophen (Tylenol Tab) 650 mg Q6H PRN PO PAIN LEVEL 1-3 OR FEVER Last administered on 03/03/17t 06:00; Admin Dose 650 MG; Start 02/28/17 at 19:00 Enoxaparin Sodium (Lovenox) 40 mg DAILY SC Last administered on 03/05/17 08:47 ; Admin Dose 40 MG; Start 03/01/17 at 09:00 Aspirin (Halfprin) 162 mg DAILY PO Last administered on 03/05/17 08:42; Admin Dose 162 MG; Start 03/01/17 at 09:00 Atorvastatin Calcium (Lipitor) 40 mg HS PO Last administered on 03/04/17 20:43 ; Admin Dose 40 MG; Start 02/28/17 at 21:00 Folic Acid (Folic Acid) 1 mg DAILY PO Last administered on 03/05/17 08:40; Admin Dose 1 MG; Start 03/01/17 at 09:00 Gabapentin (Neurontin) 100 mg TID PO Last administered on 03/05/17 08:39; Admin Dose 100 MG; Start 02/28/17 at 21:00 Metoprolol Succinate (Toprol Xl) 50 mg DAILY PO Last administered on 03/05/17 08:40; Admin Dose 50 MG; Start 03/01/17 at 09:00 Fish Oil (Fish Oil) 2,000 mg DAILY PO Last administered on 03/05/17 08:40; Admin Dose 2,000 MG; Start 03/01/17 at 09:00 Senna (Senokot) 2 tab DAILY PO Last administered on 03/05/17 08:41; Admin Dose 2 TAB; Start 03/01/17 at 09:00 Alprazolam (Xanax) 0.5 mg Q6 PRN PO ANXIETY Last administered on 03/05/17 08: 53; Admin Dose 0.5 MG; Start 02/28/17 at 19:00 Diagnostic Test (Pha) (Accu-Chek) 1 ea 02 XX ; Start 03/01/17 at 02:00 Miscellaneous Information 1 ea NOTE XX ; Start 02/28/17 at 21:00 Glucose (Glutose) 15 gm Q15M PRN PO DECREASED GLUCOSE; Start 02/28/17 at 21:00 Glucose (Glutose) 22.5 gm Q15M PRN PO DECREASED GLUCOSE; Start 02/28/17 at 21: 00 Dextrose (D50w Syringe) 25 ml Q15M PRN IV DECREASED GLUCOSE; Start 02/28/17 at 21:00 Dextrose (D50w Syringe) 50 ml Q15M PRN IV DECREASED GLUCOSE; Start 02/28/17 at 21:00 Glucagon (Glucagen) 1 mg Q15M PRN IM DECREASED GLUCOSE; Start 02/28/17 at 21:00 Glucose (Glutose) 15 gm Q15M PRN BUCCAL DECREASED GLUCOSE; Start 02/28/17 at 21 :00 Pantoprazole (Protonix Tab) 40 mg DAILY@06 PO Last administered on 03/05/17 06 :13; Admin Dose 40 MG; Start 03/01/17 at 06:00 Acetaminophen/ Hydrocodone Bitart ([place] (10/325)) 2 tab Q8H PRN PO PAIN LEVEL 7-10 Last administered on 03/05/17 08:53; Admin Dose 2 TAB; Start 03/01/17 at 10:00 Furosemide (Lasix) 40 mg DAILY PO Last administered on 03/05/17 08:39; Admin Dose 40 MG; Start 03/05/17 at 09:00 LAZARO PARRY MD Mar 05, 2017 09:56
[2017-03-05] MEDS ORDERED: MAGNESIUM HYDROXIDE 30ML CUP PO PRN (13:30)
[2017-03-05] MEDS ORDERED: BISACODYL 10 MG SUPP PR PRN (13:30)
--- NOTE | 2017-03-05 14:21 | PDOCDIS ---
Discharge Instructions DIAGNOSIS Discharge Diagnosis Congestive Heart Failure CONDITION Patient Condition: Fair HOME CARE INSTRUCTIONS: Diet Instructions: Reduced SodiumSpecial Diet: Carb controlled ACTIVITY: Activity Restrictions: Slowly Increase Activity Rest between Activity Weight Bearing Bathing Restrictions: Tub Bath FOLLOW UP/APPOINTMENTS Follow-up Plan Dr Kruse in 2 weeks . LAZARO PARRY MD Mar 05, 2017 14:21
== END 2017-03-05 16:00 | disposition home health service (06) | DRG 281 ==
LOC: E/R 13:42 → TEL 16:18 → OBSVTOIN 03-02 12:05
PROVIDERS: ADMIT Internal Medicine; ATTEND Internal Medicine
DX: I11.0 Hypertensive heart disease with heart failure (principal); I21.4 Non-ST elevation (NSTEMI) myocardial infarction; E87.1 Hypo-osmolality and hyponatremia; E11.9 Type 2 diabetes mellitus without complications; D63.8 Anemia in other chronic diseases classified elsewhere; E03.9 Hypothyroidism, unspecified; E78.5 Hyperlipidemia, unspecified; I50.33 Acute on chronic diastolic (congestive) heart failure; G89.4 Chronic pain syndrome; I25.10 Atherosclerotic heart disease of native coronary artery without angina pectoris; M81.0 Age-related osteoporosis without current pathological fracture; M48.00 Spinal stenosis, site unspecified; Z87.440 Personal history of urinary (tract) infections; Z79.891 Long term (current) use of opiate analgesic; Z95.5 Presence of coronary angioplasty implant and graft; M19.90 Unspecified osteoarthritis, unspecified site
CPT/HCPCS: 36415; 71010; 80053; 82728; 82962; 83540; 83735; 83880; 84100; 84443; 84484; 85025; 85610; 85730; 93005; 93306; 96374; 97110; 97116; 97163; 97530; G0378; J1940; J1650; J1815

== ENCOUNTER 2017-07-08 13:44 | Inpatient (IN) | END 2017-07-14 15:25 | disposition home or self-care (01) | DRG 282 ==

== ENCOUNTER 2017-08-12 18:01 | Inpatient (IN) | END 2017-08-17 17:20 | disposition hospice, home (50) | DRG 690 ==